=== PATIENT | female | born 1940 | race Hispanic/Latino ===

== ENCOUNTER 2023-10-09 09:03 | Observation (INO) | payer MEDICARE, SELFPAY ==
[2023-10-09] VITALS (14 sets, daily range): BP systolic 114–158; BP diastolic 33–45; PULSE 68–93; RESP 17–28; TEMP 36.3–38.4; O2SAT 90–100; BMI 35.1
--- NOTE | ~2023-10-09 | US_ITS ---
EXAMINATION: US venous doppler [facility] DATE: 10/10/2023 12:01 INDICATION: Shortness of breath. Elevated d-dimer. TECHNIQUE: Grayscale ultrasound images without and with compression and Doppler ultrasound images of the bilateral lower extremity veins were obtained. COMPARISON: None. FINDINGS: The visualized portions of right common femoral vein, profunda (deep) femoral vein, femoral vein, pop liteal vein, peroneal veins, posterior tibial veins, and greater saphenous vein outflow are patent. The visualized portions of left common femoral vein, profunda femoral vein, femoral vein, popliteal v ein, peroneal veins, posterior tibial veins, and greater saphenous vein outflow are patent. IMPRESSION: 1. No deep venous thrombosis. Reviewed, dictated and finalized at location E. IR SUPERVISOR
--- NOTE | ~2023-10-09 | XR_ITS ---
XR chest 1V portable DATE: 10/09/2023 10:02 INDICATION: Cough, wheezing TECHNIQUE: Portable upright AP chest on 10/09/2023 at 0955 hours COMPARISON: None FINDINGS: Cardiomegaly. Aortic valve replacement. Left-sided dual-lead pacemaker with leads overlying right atrium and right ventricle. Prominent aortic arch calcification, mild aortic tortuosity. There is patchy infiltrate in the mid and lower lung zones, right greater than left No pleural effusion or pneumothorax. Osteopenia. IMPRESSION: Patchy bilateral pulmonary infiltrates suggesting pneumonia. Pulmonary edema of the addit ional consideration Cardiomegaly Aortic valve replacement Aortic atherosclerosis Left dual-lead pacemaker Reviewed, dictated and finalized at location A. OS IMPRESSION: Patchy bilateral pulmonary infiltrates suggesting pneumonia. Pulmon milka edema of the additional consideration Cardiomegaly Aortic valve replacement Aortic atherosclerosis Left dual-lead pacemaker
--- NOTE | ~2023-10-09 | NM_ITS ---
NM lung vent and perfusion INDICATION: Elevated d-dimer. TECHNIQUE: The patient inhaled aerosolized 5 mCi xenon-133. Following ventilation scan, 10.2 mCi Tc 99m MAA was injected intravenously for perfusion images. Multiple images were then acquired. COMPARISON: Chest x-ray dated chest dated 08/09/2023 FINDINGS: The comparison chest radiograph demonstrates patchy bilateral airspace disease, compatible with pneumonia. The perfusion scan is normal. The aerosol in images demonstrate multiple small, mode rate-sized enlarged ventilation/perfusion mismatches, the largest of which in the right lower lung co rresponds to chest x-ray abnormality. IMPRESSION: 1: High probability for pulmonary embolism. Reviewed, dictated and finalized at location A. ATIONS ASST
--- NOTE | 2023-10-09 09:14 | ECG_ITS ---
Measurements Intervals [place] Rate: 87 P: MD: 0 QRS: -75 QRSD: 205 T: 100 QT: 452 QTc: 546 Interpretive Statements SINUS RHYTHM eLECTRONIC VENTRICULAR PACEMAKER ABNORMAL RHYTHM ECG NO PREVIOUS ECG AVAILABLE FOR COMPARISON Electronically Signed On 10-09-2023 13:53:16 ECONOMIC HISTORIAN by Ree Mendoza M.D.
[2023-10-09 09:31] LABS: Basophils Absolute Auto 0.1 K/mm3 (0.0-0.1); Basophils Percent Auto 0.3 % (0.2-1.2); Eosinophils Percent Auto 0.1 % (0-4.4); Hematocrit 39.8 % (37.0-47.0); Hemoglobin 12.6 g/dL (12.0-15.0); Immature Granulocyte Absolute 0.11 K/mm3 (0.00-0.031); Immature Granulocyte Percent A 0.6 % (0-0.5); Lymphocytes Absolute Auto 1.01 K/mm3 (0.9-3.2); Lymphocytes Percent Auto 5.8 % (18.3-44.2); Mean Corpuscular HGB Conc 31.7 g/dl (32-36); Mean Corpuscular Hemoglobin 28.5 pg (26-34); Mean Platelet Volume 11.1 fl (7.4-10.4); Monocytes Absolute Auto 1.7 K/mm3 (0.1-0.6); Monocytes Percent Auto 9.7 % (2.6-8.5); Neutrophils Absolute Auto 14.6 K/mm3 (1.3-6.7); Neutrophils Percent Auto 83.5 % (45.5-73.1); Platelet Count Result 155 k/mm3 (150-375); Red Blood Count 4.42 M/mm3 (4.2-5.4); Red Cell Distribution Width 13.6 % (11.5-14.5); White Blood Count 17.5 K/mm3 (4.5-10.0)
--- NOTE | 2023-10-09 09:39 | ED.URI ---
HPI - URI/Sore Throat General Chief Complaint: Upper Respiratory Infection Stated Complaint: sick since last noc Time Seen by Provider: 10/09/23 09:15 History of Present Illness HPI Narrative: 83-year-old female with history of hypertension, hyperlipidemia, breast cancer, s/p cholecystectomy, pacemaker placement reports for evaluation for fever, diarrhea and dyspnea. Patient states yesterday she developed a subjective fever. States this morning she woke up and felt feverish again, dyspneic and had 2 episodes of diarrhea which prompted her to come to the ED. patient is traveling from [facility] to visit family members. States her family has been sick this past weekend she has been exposed to the illness. She denies chest pain, cough, body aches, nasal congestion, sore throat or otalgia, abdominal pain, nausea or vomiting, dysuria or hematuria. Denies lower extremity edema. Related Data Home Medications Medication Instructions Recorded Confirmed aspirin 81 mg tablet 81 mg PO DAILY 10/09/23 10/09/23 furosemide 20 mg tablet 20 mg PO DAILY 10/09/23 10/09/23 losartan 100 mg tablet 100 mg PO DAILY 10/09/23 10/09/23 metoprolol succinate 25 mg 50 mg PO DAILY 10/09/23 10/09/23 tablet,extended release 24 hr potassium chloride 10 mEq 10 meq PO DAILY 10/09/23 10/09/23 tablet,extended release Allergies Allergy/AdvReac Type Severity Reaction Status Date / Time atorvastatin [From Lipitor] AdvReac Itching Verified 10/09/23 09:07 Review of Systems Review of Systems: CONSTITUTIONAL: See HPI EYES: Denies visual changes, redness, or discharge. ENT: See HPI CARDIOVASCULAR: Denies chest pain, palpitations, or edema. RESPIRATORY: See HPI GASTROINTESTINAL: Denies abdominal pain, nausea, vomiting, or diarrhea. GENITOURINARY: Denies dysuria or hematuria. SKIN: Denies rash or itching. MUSCULOSKELETAL: Denies back pain, joint pain, or myalgia. NEUROLOGIC: Denies headache, numbness, or weakness. PSYCHIATRIC: Denies anxiety or depression. [facility] Past Medical History Medical History (Updated 10/09/23 @ 14:33 by Santa Guevara PA-C) Hyperlipidemia Hypertension Surgical History Surgical History (Updated 10/09/23 @ 17:26 by Ree Mendoza MD) History of aortic valve replacement History of permanent cardiac pacemaker placement Social History Social History (Updated 10/09/23 @ 14:30 by Santa Guevara PA-C) Social History: Surrogate medical decision maker: Nati Garcia. Code status: Full code. Smoking status: Never smoker Substance use type: does not use Do You Feel Safe in your Home?: Yes Lack of Transportation: No Lack of Food: Never True Current Housing: I Have Housing Concerned About Future Housing: No Difficulty Paying Gas/Electric Bills: No Difficulty Paying for Meds: No Currently Unemployed: No Education: Trade/Vocational Certificate Difficulty w/ Childcare or Family Care: No Spiritual care concerns: No Exam Narrative: GENERAL: Well-appearing, well-nourished, and in no acute distress. HEAD: Normocephalic, atraumatic. EYES: PERRLA and EOMI. ENT: Nares clear, no rhinorrhea or epistaxis. Mucous membranes tacky. Posterior pharynx without erythema or edema. Uvula midline. No tonsillar hypertrophy. NECK: Supple. CHEST: Clear to auscultation. No respiratory distress. HEART: Regular rate and rhythm. No murmur heard. Normal peripheral pulses. ABDOMEN: Soft, nontender, nondistended, normal active bowel sounds. No rebound, guarding or rigidity. No CVA tenderness. EXTREMITIES: Normal range of motion. No edema. Negative Homans bilaterally. SKIN: Warm, dry, no rash. NEURO: No focal deficits. Alert and oriented x3 Course Course Emergency Course: The patient was started on 2L NC after having persistent oxygen saturations of 89% with a good pleth. She is satting 100% on 2L NC. Vital Signs Vital signs: Vital Signs Temperature 101.1 F H 10/09/23 09:02 Pulse Rat
[2023-10-09 09:40] LABS: Alanine Aminotransferase 17 U/L (6-35); Alkaline Phosphatase 124 U/L (38-126); Anion Gap 8 mmol/L (8-16); Aspartate Amino Transferase 32 U/L (14-36); Bilirubin,Total 1.2 mg/dL (0.2-1.3); Blood Urea Nitrogen 38 mg/dL (7-17); Calcium 9.2 mg/dL (8.4-10.2); Carbon Dioxide 24 mmol/L (22-30); Chloride 101 mmol/L (98-107); Estimated Glomerular Filt Rate 29; Glucose 113 mg/dL (65-110); Sodium 133 mmol/L (137-145)
[2023-10-09] MEDS: ACETAMINOPHEN 500 MG TABLET 1000 MG PO (09:46)
[2023-10-09] MEDS: SODIUM CHLORIDE 0.9% IV 1,000 ML 999 ML IV CONT (09:47)
--- NOTE | 2023-10-09 09:50 | PC.NURSE ---
Pt noted to be 89% on room air.
[2023-10-09 10:20] LABS: Influenza A QL RT-PCR Negative (Negative); Influenza B QL RT-PCR Negative (Negative); RSV RNA, RT-PCR Negative (Negative); SARS-CoV-2 RNA PCR Negative (Negative)
[2023-10-09 10:24] LABS: Magnesium 2.3 mg/dL (1.6-2.3)
[2023-10-09] MEDS: AZITHROMYCIN 500 MG/NS 250 ML 500 MG/250 ML BAG 250 MG IVPB (10:30)
[2023-10-09 10:35] LABS: NT Pro B Type Natriuretic Pept 15200 pg/mL (19.9-100)
[2023-10-09 10:40] LABS: Troponin I 0.082 ng/mL (0.000-0.034)
[2023-10-09 11:00] LABS: Appearance Urine Cloudy (Clear); Bacteria Urine None Seen /hpf; Bilirubin Urine Negative (Negative); Blood Urine Negative (Negative); Color Urine Yellow (Yellow); Glucose Urine UA Negative (Negative); Ketones Urine Trace mg/dL (Negative); Leukocyte Esterase Ur Negative LEU/UL (Negative); Need Manual Microscopic Reviewed; Nitrate Urine Negative (Negative); Protein Urine 3+ mg/dL (Negative); RBC Urine 0-2 /hpf (0-2); Specific Grav Ur 1.017 (1.001-1.035); Squamous Epithelial Cell Urine Occasional /hpf (Few); WBC Urine 0-5 /hpf
[2023-10-09 11:01] LABS: Add Urine Microscopic? YES
[2023-10-09 11:21] LABS: Alveolar/Arterial O2 Gradient 34.7 mmHg; Base Excess ABG -3.2 mEq/l (+/-2.0); Fractional Inspired Oxygen 28 %; HCO3 ABG 21.9 mEq/l (22.0-26.0); Oxygen Content ABG 16.7 %vol (16.0-22.0); Oxygen Saturation ABG 98.2 % (95.0-100.0); Oxyhemoglobin 96.8 % THb (90.0-100.0); PCO2 ABG 39.3 mmHg (35.0-45.0); PO2 ABG 118.6 mmHg (80.0-100.0); PO2 FiO2 Ratio Arterial Blood 4.24 %; Site Drawn RIGHT BRACHIAL; Total Hemoglobin 12.1 g/dL (12.0-18.0); pH ABG 7.363 (7.350-7.450)
[2023-10-09 11:22] LABS: Device NASAL CANNULA
--- NOTE | 2023-10-09 12:38 | ECG_ITS ---
Measurements Intervals [place] Rate: 76 P: 23 WA: 223 QRS: -77 QRSD: 193 T: 102 QT: 497 QTc: 560 Interpretive Statements SINUS RHYTHM WITH eLECTRONIC VENTRICULAR PACEMAKER ABNORMAL RHYTHM ECG COMPARED TO ECG 10/09/2023 09:20:23 NO SIGNIFICANT CHANGES Electronically Signed On 10-09-2023 13:56:49 GROUND SURVEILLANCE SYSTEMS OPERATOR by Ree Mendoza M.D.
[2023-10-09 13:01] LABS: Troponin I 0.103 ng/mL (0.000-0.034)
--- NOTE | 2023-10-09 13:11 | PC.NURSE ---
Pt taken for scan at this time
--- NOTE | 2023-10-09 13:44 | PC.NURSE ---
Pt returned to room 7 from scans.
--- NOTE | 2023-10-09 14:17 | ADMGEN ---
This patient, Emily Rm, was admitted to IMU Room 202-01. Patient/family oriented to hospital policies and general routines including ID bracelet, bed and alarms, visiting hours, pain management, procedures, bathroom and other care routines, personal items, smoking policy, room service/diet, and visiting hours. Information on how to activate the Rapid Response Team has been discussed. Patient/Family are encouraged to report perceived risks to care and to ask questions if they do not understand what they are told or what they should do.
--- NOTE | 2023-10-09 14:23 | PM.IMHP ---
H&P: HPI History of Present Illness Date/Time: 10/09/23 15:00 Chief Complaint: Shortness of breath. Narrative: This is a pleasant 83-year-old female with history of bioprosthetic aortic valve replacement, permanent pacemaker insertion, and hypertension who presented to the emergency department via EMS for evaluation of shortness of breath. The patient provides the following history. She is in town visiting family members for [place] and she felt fine the first few days. Yesterday she started to feel unwell with subjective fever, runny nose, cough rarely productive of clear phlegm, poor appetite, slight nausea, and loose stools. This morning she was feeling quite weak and came in for evaluation. She denies headache, neck ache, chest pain, pleuritic pain, palpitations, vomiting, and dysuria. In the ED: Temperature was 101.1? F on arrival. SpO2 has been in the upper 90s on 2 L nasal cannula. Pulse and blood pressure have been stable. Labs were significant for WBC count of 17.5, D-dimer 2.90, sodium 133, BUN 38, creatinine 1.70, troponin 0.082, and a proBNP 83175. She tested negative for influenza, RSV, and COVID. Chest x-ray showed patchy bilateral pulmonary infiltrates suggestive of pneumonia. V/Q scan showed high probability for pulmonary embolism. Intervention thus far include azithromycin 500 mg, ceftriaxone 1 g, and enoxaparin 77 mg. She is being admitted to the IMU in this setting for further treatment and evaluation. She denies personal and family history of venous thromboembolism. She has not had any recent long distance travel. She does admit to being somewhat sedentary. She has not noticed any swelling in her legs and denies calf pain. Review of Systems Review of Systems: Twelve systems were reviewed and are negative except for as per HPI. [facility] Past Medical History Medical History (Updated 10/09/23 @ 21:20 by Santa Guevara PA-C) Cancer of right breast Hyperlipidemia Hypertension Surgical History Surgical History (Updated 10/09/23 @ 21:18 by Santa Guevara PA-C) History of aortic valve replacement It sounds like she had a TAVR. History of cholecystectomy History of permanent cardiac pacemaker placement History of right mastectomy Family History Family History (Updated 10/09/23 @ 21:17 by Santa Guevara PA-C) Other Heart disease Hypertension Social History Social History Social History: Surrogate medical decision maker: Nati Garcia. Code status: Full code. Smoking status: Never smoker Substance use type: does not use Do You Feel Safe in your Home?: Yes Lack of Transportation: No Lack of Food: Never True Current Housing: I Have Housing Concerned About Future Housing: No Difficulty Paying Gas/Electric Bills: No Difficulty Paying for Meds: No Currently Unemployed: No Education: Trade/Vocational Certificate Difficulty w/ Childcare or Family Care: No Spiritual care concerns: No Meds Home Medications and Allergies Home Medications Medication Instructions Recorded Confirmed Type aspirin 81 mg tablet 81 mg PO DAILY 10/09/23 10/09/23 History furosemide 20 mg tablet 20 mg PO DAILY 10/09/23 10/09/23 History losartan 100 mg tablet 100 mg PO DAILY 10/09/23 10/09/23 History metoprolol succinate 25 mg 50 mg PO DAILY 10/09/23 10/09/23 History tablet,extended release 24 hr potassium chloride 10 mEq 10 meq PO DAILY 10/09/23 10/09/23 History tablet,extended release Allergies Allergy/AdvReac Type Severity Reaction Status Date / Time atorvastatin [From Lipitor] AdvReac Itching Verified 10/09/23 09:07 Vital Signs Vital Signs - 24 hr 10/09/23 09:02 10/09/23 09:49 10/09/23 10:31 Temperature 101.1 F H 100.2 F H Pulse Rate 93 77 Respiratory Rate 26 H 28 H Blood Pressure 147/45 H 114/40 L Pulse Oximetry 100 94 99 Oxygen Delivery Room Air Nasal Cannula Oxygen Flow Rate 2
--- NOTE | 2023-10-09 15:37 | PM.CNCAR ---
Assessment and Plan Assessment and plan (1) Elevated troponin: Code(s): R79.89 - Other specified abnormal findings of blood chemistry Status: Acute Assessment and Plan: Patient admitted with shortness of breath and fever, pneumonia and PEs. Has a mildly elevated troponin. No history of CAD. EKG is uninterpretable. Hhowever I think in view of the big picture, this troponin rise is likely due to her hypoxia and pulmonary emboli, and not due to ACS. Also has a significantly elevated proBNP but does not appear volume overloaded so will not treat for CHF. --check echo --otherwise no further cardiac evaluation (2) Pulmonary embolism: Code(s): I26.99 - Other pulmonary embolism without acute cor pulmonale Status: Acute Assessment and Plan: V/Q scan showed multiple defects, hike probability of PE. No edema but did have a car ride recently. --agree with Lovenox (3) Pneumonia: Qualifiers: Laterality: bilateral Lung location: unspecified part of lung Pneumonia type: due to unspecified organism Qualified Code(s): J18.9 - Pneumonia, unspecified organism Code(s): J18.9 - Pneumonia, unspecified organism Status: Acute Assessment and Plan: Fever, elevated white count infiltrates consistent with pneumonia. Started on antibiotics. Treatment per hospitalist. (4) History of aortic valve replacement: Code(s): Z95.2 - Presence of prosthetic heart valve Status: Acute Assessment and Plan: History of TAVR valve around 2019, followed by [facility]. No evidence of of significant bioprosthetic valve disease. Follow-up with usual groundwater monitoring technician on discharge. (5) History of permanent cardiac pacemaker placement: Code(s): Z95.0 - Presence of cardiac pacemaker Status: Acute Assessment and Plan: History of pacemaker, atrial sensing ventricular pacing appropraitely, follow-up with usual groundwater monitoring technician on discharge. Plan Will sign off. Please call up with the be of further assistance. History of Present Illness History of Present Illness Consult date/time: 10/09/23 15:37 Reason For Visit: Pneumonia Narrative: Tracy noble is an 83-year-old female whom I was asked to see at the request of CHAI Colindres for my advice and opinion regarding her elevated troponin proBNP in consultation. She has history of hypertension, hyperlipidemia, TAVR, pacemaker. The patient lives in [place] and drove here on to visit family. This morning she awoke feeling feverish, short of breath and had 2 episodes of diarrhea. She was too weak to stand and her daughter helped set her on the floor. Mild nonproductive cough, but no chest pain or pressure. Some family members had been sick recently as well. She was brought to the emergency room. Her temperature was a 101.4? on admission and she was mildly hypoxic. Her white count was 17 K. She is being admitted for pneumonia. In addition her D-dimer was elevated, and V/Q scan showed high probability for PE and she has been started on Lovenox. Troponin 0.02, 0.10 ProBNP 59930 Negative for flu, COVID, RSV EKG on 10/09/2023 at 9:20 a.m. shows a since and ventricularly pacing: Second EKG same day shows similar findings Both personally reviewed Chest x-ray: Patchy bilateral pulmonary infiltrates suggesting pneumonia. Pulmonary edema of the additional consideration Cardiomegaly Aortic valve replacement Aortic atherosclerosis Left dual-lead pacemaker Personally reviewed, agree. V/Q scan: High probability for pulmonary embolism Review of Systems Constitutional: Constitutional: Reports fatigue, Reports fever(s), Reports lethargy and Reports weakness Eyes: Eyes: Reports no additional eye complaints ENT: Denies epistaxis Cardiovascular: Cardiovascular: Denies chest pain, Denies pedal edema, Denies lightheadedness and Reports dyspnea Respiratory: Respiratory: Denies chest congestion, Reports co
[2023-10-09 17:47] LABS: Troponin I 0.086 ng/mL (0.000-0.034)
[2023-10-09] MEDS: ENOXAPARIN 80 MG/0.8 ML SYRINGE SUB-Q (20:52)
[2023-10-10] VITALS (14 sets, daily range): BP systolic 128–155; BP diastolic 33–77; PULSE 70–87; RESP 18–20; TEMP 36.1–36.7; O2SAT 92–100
[2023-10-10 05:35] LABS: Hematocrit 33.7 % (37.0-47.0); Hemoglobin 10.6 g/dL (12.0-15.0); Immature Platelet Fraction Pct 5.7 % (0.9-11.2); Mean Corpuscular HGB Conc 31.5 g/dl (32-36); Mean Corpuscular Hemoglobin 28.6 pg (26-34); Mean Corpuscular Volume 91.1 fl (80-100); Mean Platelet Volume 10.9 fl (7.4-10.4); Platelet Count Result 139 k/mm3 (150-375); Red Cell Distribution Width 13.8 % (11.5-14.5)
[2023-10-10 05:45] LABS: Anion Gap 7 mmol/L (8-16); Blood Urea Nitrogen 37 mg/dL (7-17); Calcium 8.2 mg/dL (8.4-10.2); Carbon Dioxide 22 mmol/L (22-30); Chloride 105 mmol/L (98-107); Estimated Glomerular Filt Rate 33; Glucose 91 mg/dL (65-110); Magnesium 2.4 mg/dL (1.6-2.3); Potassium 4.8 mmol/L (3.4-5.0); Sodium 134 mmol/L (137-145)
[2023-10-10] MEDS: PERFLUTREN LIPID MICROSPHERES 1.5 ML VIAL DILUTED TO 10 ML TOTAL VOLUME IV PUSH (08:45)
[2023-10-10] MEDS: ASPIRIN 81 MG ENTERIC TABLET PO (09:29)
[2023-10-10] MEDS: ENOXAPARIN 80 MG/0.8 ML SYRINGE SUB-Q ×2 (09:29→20:19)
[2023-10-10] MEDS: LOSARTAN POTASSIUM 100 MG TABLET PO (09:29)
[2023-10-10] MEDS: POTASSIUM CHLORIDE 10 MEQ ER TABLET PO (09:29)
[2023-10-10] MEDS: AZITHROMYCIN 500 MG/NS 250 ML 500 MG/250 ML BAG 250 MG IVPB (09:30)
[2023-10-10] MEDS: METOPROLOL SUCCINATE EXT REL 50 MG TABCR PO (09:30)
--- NOTE | 2023-10-10 13:15 | PM.IMPN ---
Progress Note: A&P Assessment and Plan (1) Pulmonary embolism: Code(s): I26.99 - Other pulmonary embolism without acute cor pulmonale Status: Acute Assessment and Plan: V/Q scan shows high probability for pulmonary embolism. Continue enoxaparin 1 milligram/kilogram b.i.d. will start Eliquis with tomorrow. Echocardiogram and venous Doppler ultrasounds of the lower extremities order for further evaluation. (2) Pneumonia: Qualifiers: Laterality: bilateral Lung location: unspecified part of lung Pneumonia type: due to unspecified organism Qualified Code(s): J18.9 - Pneumonia, unspecified organism Code(s): J18.9 - Pneumonia, unspecified organism Status: Acute Assessment and Plan: Clinically the patient has pneumonia and pulmonary infiltrates are noted on x-ray. Continue azithromycin 500 mg daily and ceftriaxone 1 g daily. Attempt sputum for culture. Check Legionella and pneumococcal antigens. (3) Elevated troponin: Code(s): R79.89 - Other specified abnormal findings of blood chemistry Status: Acute Assessment and Plan: Cardiology consult noted. No new intervention suggested. troponin is a bit elevated but has remained flat and is likely related to pulmonary embolism. Echocardiogram has been ordered for further evaluation. (4) Hypertension: Code(s): I10 - Essential (primary) hypertension Status: Acute Assessment and Plan: Stable on current medications. Will continue current treatment. (5) Renal failure: Code(s): N19 - Unspecified kidney failure Status: Acute Assessment and Plan: Stable on current medications. Will continue current treat Check BMP tomorrow Plan Plan is to start Eliquis tomorrow otherwise continue current treatment monitor closely. Subjective Date/time seen: 10/10/23 13:15 Interval history: Patient was seen during the morning rounds today. Mild shortness of breath. No chest pain. No abdominal pain, nausea, no vomiting. Mood stable. Review of Systems Review of Systems: Twelve systems were reviewed and are negative except for as per HPI. Exam Narrative: General: Well-developed, nontoxic-appearing female sitting up in bed. Weight: 78.8 kg. BMI: 35.1. HEENT: Slightly hard of hearing. PERRL, EOMI. Sclera anicteric. Oral mucosa moist. Neck: Supple. No JVD. Respiratory: Respirations are nonlabored. Coarse lung sounds heard in the right mid to lower lobe. Cardiovascular: Regular rate and rhythm with S1-S2. Systolic murmur heard at the upper sternal border. Gastrointestinal: Abdomen is soft, nontender, and nondistended with positive bowel sounds. No organomegaly. Skin: Warm and dry. No rash or lesions on limited exam. Extremities: No cyanosis, clubbing, or significant edema. Radial and pedal pulses intact. No palpable knots or cords. Neurological: Alert. Cranial nerves 2-12 are grossly intact. No gross focal deficits to casual conversation. Psychiatric: Pleasant and cooperative with appropriate mood and affect. Objective Data Vital Signs Vital Signs: Vital Signs - 24 hr 10/09/23 14:21 10/09/23 16:00 10/09/23 16:00 Temperature 36.8 C Pulse Rate 68 68 72 Respiratory Rate 20 20 Blood Pressure 117/34 L Pulse Oximetry 98 98 Oxygen Delivery Room Air 10/09/23 18:00 10/09/23 20:00 10/09/23 20:00 Temperature 36.3 C L Pulse Rate 75 75 75 Respiratory Rate 20 20 Blood Pressure 128/35 L Pulse Oximetry 99 99 Oxygen Delivery Room Air 10/09/23 20:00 10/09/23 22:00 10/10/23 00:00 Temperature 36.6 C Pulse Rate 76 77 79 Respiratory Rate 20 Blood Pressure 128/36 L Pulse Oximetry 100 Oxygen Delivery 10/10/23 00:00 10/10/23 00:00 10/10/23 03:41 Temperature 36.3 C L Pulse Rate 79 80 83 Respiratory Rate 20 20 Blood Pressure 144/33 H Pulse Oximetry 100 93 Oxygen Delivery Room Air 10/10/23 02:00 10/10/23 04:00 10/10
--- NOTE | 2023-10-10 14:29 | ECHO_ITS ---
Patient Info Name: Emily Rm Age: 83 years : 1940 Gender: Female Ht: 59 in Wt: 173 lbs BSA: 1.85 m2 HR: 78 bpm BP: 144 / 33 mmHg Technical Quality: Fair Exam Date: 10/10/2023 8:26 AM Exam Location: Echo Lab Patient Status: Outpatient Admit Date: 10/09/2023 Staff Ordering Physician: Santa Guevara PA-C Attending Provider: Anthony Corona MD Referring Physician: Ismael TEMPLETON; Exam Type: CA echo dop color flow w con Study Info Indications - poss pulmonary emboli - elevated BNP - elevated trop Complete two-dimensional, color flow and Doppler transthoracic echocardiogram is performed with contrast to opacify the left ventricle and to improve the deliniation of the left ventricle endocardial borders. Contrast/Agitated Saline Contrast/Ag. Saline: Definity Amount: 1.00 ml Existing IV Access: Yes IV Access Condition: patent with no signs of infiltration Summary 1. Left ventricular chamber dimension is normal. 2. Left ventricular systolic function is normal, estimated at 65-70%. 3. There is severely increased left ventricular wall thickness. 4. The left ventricular diastolic function is grade I diastolic dysfunction. 5. Right ventricular systolic function is normal. 6. Left atrial chamber dimension is severely enlarged. 7. Bioprosthetic valve appears well seated, however, valve leaflets are not well visualized. Concern for significant bioprosthetic valve stenosis due to mean gradient of 39mmHg and peak velocity of 406 cm/s. 8. There is moderate aortic valve regurgitation. 9. There is mild mitral valve regurgitation. 10. There is mild tricuspid valve regurgitation. Left Ventricle Left ventricular chamber dimension is normal. Left ventricular systolic function is normal, estimated at 65-70%. There is severely increased left ventricular wall thickness. The left ventricular diastolic function is grade I diastolic dysfunction. Right Ventricle Right ventricular chamber dimension is normal. Right ventricular systolic function is normal. Left Atria Left atrial chamber dimension is severely enlarged. Right Atria Right atrial chamber dimension is normal. Atrial Septum Intact interatrial septum visualized by color flow imaging. Aortic Valve Bioprosthetic valve appears well seated, however, valve leaflets are not well visualized. Concern for significant bioprosthetic valve stenosis due to mean gradient of 39mmHg and peak velocity of 406 cm/s. There is moderate aortic valve regurgitation. Pulmonic Valve The pulmonic valve is not well visualized. There is trace pulmonic regurgitation. Mitral Valve The mitral valve has thickened leaflets. There is mild mitral valve regurgitation. The mitral valve annulus is severely calcified. Tricuspid Valve There is mild tricuspid valve regurgitation. Pericardium/Pleural There is no pericardial effusion. Inferior Vena Cava Normal inferior vena cava with >50% collapse upon inspiration consistent with normal right atrial pressure, 3 mmHg. Aorta The aortic root size at the sinus of Valsalva is normal. Left Ventricular Outflow Tract Name Value Normal LVOT 2D LVOT Diameter 1.95 cm Pulmonic Valve Name
--- NOTE | 2023-10-10 15:23 | PC.NURSE ---
This patient, Emily Rm, was received from [facility] on 10/10/23 at 1523. Patient/family oriented to unit policies and routines
--- NOTE | 2023-10-10 15:43 | PC.NURSE ---
This patient, Emily Rm, was transferred to [facility] on 10/10/23 at 1520. Personal belongings sent with patient. Report given to Amy. Appropriate documentation sent with patient.
--- NOTE | 2023-10-10 19:46 | PC.NURSE ---
Amy Hu LPN provided care for this patient on 10/10/23. I have reviewed her charting and agree with her assessments.
[2023-10-11] VITALS (10 sets, daily range): BP systolic 155–188; BP diastolic 34–62; PULSE 67–80; RESP 20–24; TEMP 36.4–36.9; O2SAT 90–94
[2023-10-11 06:50] LABS: Alanine Aminotransferase 13 U/L (6-35); Albumin Level 3.3 g/dL (3.5-5.1); Alkaline Phosphatase 105 U/L (38-126); Anion Gap 7 mmol/L (8-16); Aspartate Amino Transferase 24 U/L (14-36); Bilirubin,Total 0.4 mg/dL (0.2-1.3); Blood Urea Nitrogen 33 mg/dL (7-17); Calcium 8.4 mg/dL (8.4-10.2); Carbon Dioxide 22 mmol/L (22-30); Chloride 107 mmol/L (98-107); Estimated Glomerular Filt Rate 36; Glucose 99 mg/dL (65-110); Potassium 4.6 mmol/L (3.4-5.0); Sodium 136 mmol/L (137-145)
[2023-10-11] MEDS: METOPROLOL SUCCINATE EXT REL 50 MG TABCR PO (08:50)
[2023-10-11] MEDS: APIXABAN 5 MG TABLET 10 MG PO ×2 (08:50→20:04)
[2023-10-11] MEDS: POTASSIUM CHLORIDE 10 MEQ ER TABLET PO (08:50)
[2023-10-11] MEDS: ASPIRIN 81 MG ENTERIC TABLET PO (08:51)
[2023-10-11] MEDS: LOSARTAN POTASSIUM 100 MG TABLET PO (08:51)
[2023-10-11] MEDS: AZITHROMYCIN 500 MG/NS 250 ML 500 MG/250 ML BAG 250 MG IVPB (09:39)
--- NOTE | 2023-10-11 11:19 | PM.IMPN ---
Progress Note: A&P Assessment and Plan (1) Pulmonary embolism: Code(s): I26.99 - Other pulmonary embolism without acute cor pulmonale Status: Acute Assessment and Plan: V/Q scan shows high probability for pulmonary embolism. Continue enoxaparin 1 milligram/kilogram b.i.d. will start Eliquis with tomorrow. Venous doppler lower extremities negative (2) Pneumonia: Qualifiers: Laterality: bilateral Lung location: unspecified part of lung Pneumonia type: due to unspecified organism Qualified Code(s): J18.9 - Pneumonia, unspecified organism Code(s): J18.9 - Pneumonia, unspecified organism Status: Acute Assessment and Plan: Clinically the patient has pneumonia and pulmonary infiltrates are noted on x-ray. Continue azithromycin 500 mg daily and ceftriaxone 1 g daily. Improving (3) Elevated troponin: Code(s): R79.89 - Other specified abnormal findings of blood chemistry Status: Acute Assessment and Plan: Cardiology consult noted. No new intervention suggested. troponin is a bit elevated but has remained flat and is likely related to pulmonary embolism. (4) Hypertension: Code(s): I10 - Essential (primary) hypertension Status: Acute Assessment and Plan: Stable on current medications. Will continue current treatment. (5) Renal failure: Code(s): N19 - Unspecified kidney failure Status: Acute Assessment and Plan: Stable on current medications. Will continue current treat Check BMP tomorrow Plan Plan is to start Eliquis tomorrow otherwise continue current treatment monitor closely. Subjective Date/time seen: 10/11/23 11:19 Interval history: Patient was seen during the morning rounds today. No new overnight complaints. Mild shortness of breath. No chest pain. No abdominal pain, nausea, no vomiting. Mood stable. Review of Systems Review of Systems: Twelve systems were reviewed and are negative except for as per HPI. Exam Narrative: General: Well-developed, nontoxic-appearing female sitting up in bed. Weight: 78.8 kg. BMI: 35.1. HEENT: Slightly hard of hearing. PERRL, EOMI. Sclera anicteric. Oral mucosa moist. Neck: Supple. No JVD. Respiratory: Respirations are nonlabored. Coarse lung sounds heard in the right mid to lower lobe. Cardiovascular: Regular rate and rhythm with S1-S2. Systolic murmur heard at the upper sternal border. Gastrointestinal: Abdomen is soft, nontender, and nondistended with positive bowel sounds. No organomegaly. Skin: Warm and dry. No rash or lesions on limited exam. Extremities: No cyanosis, clubbing, or significant edema. Radial and pedal pulses intact. No palpable knots or cords. Neurological: Alert. Cranial nerves 2-12 are grossly intact. No gross focal deficits to casual conversation. Psychiatric: Pleasant and cooperative with appropriate mood and affect. Objective Data Vital Signs Vital Signs: Vital Signs - 24 hr 10/10/23 12:00 10/10/23 12:00 10/10/23 14:00 Temperature 36.6 C Pulse Rate 87 71 72 Respiratory Rate 18 Blood Pressure 143/77 H Pulse Oximetry 97 Oxygen Delivery 10/10/23 15:54 10/10/23 16:00 10/10/23 15:23 Temperature 36.5 C Pulse Rate 73 80 Respiratory Rate 18 Blood Pressure 147/38 H Pulse Oximetry 95 Oxygen Delivery Room Air 10/10/23 21:25 10/10/23 20:00 10/11/23 02:30 Temperature 36.1 C L 36.8 C Pulse Rate 73 75 75 Respiratory Rate 18 24 H Blood Pressure 155/43 H 170/34 H Pulse Oximetry 92 90 Oxygen Delivery 10/11/23 00:00 10/11/23 04:00 10/11/23 05:15 Temperature 36.4 C L Pulse Rate 77 67 75 Respiratory Rate 20 Blood Pressure 168/37 H Pulse Oximetry 90 Oxygen Delivery 10/11/23 08:50 Temperature Pulse Rate 73 Respiratory Rate Blood Pressure Pulse Oximetry Oxygen Delivery Intake/Output Intake/Output: Intake & Output 10/08/23 10/09/23 12
[2023-10-11 18:52] LABS: Basophils Absolute Auto 0.1 K/mm3 (0.0-0.1); Basophils Percent Auto 0.8 % (0.2-1.2); Eosinophils Absolute Auto 0.3 K/mm3 (0-0.3); Eosinophils Percent Auto 3.9 % (0-4.4); Hematocrit 37.9 % (37.0-47.0); Hemoglobin 11.6 g/dL (12.0-15.0); Immature Granulocyte Absolute 0.03 K/mm3 (0.00-0.031); Immature Granulocyte Percent A 0.4 % (0-0.5); Lymphocytes Absolute Auto 1.21 K/mm3 (0.9-3.2); Lymphocytes Percent Auto 15.3 % (18.3-44.2); Mean Corpuscular HGB Conc 30.6 g/dl (32-36); Mean Corpuscular Hemoglobin 28.4 pg (26-34); Mean Corpuscular Volume 92.9 fl (80-100); Mean Platelet Volume 11.2 fl (7.4-10.4); Monocytes Absolute Auto 0.6 K/mm3 (0.1-0.6); Monocytes Percent Auto 7.8 % (2.6-8.5); Neutrophils Absolute Auto 5.7 K/mm3 (1.3-6.7); Neutrophils Percent Auto 71.8 % (45.5-73.1); Platelet Count Result 177 k/mm3 (150-375); Red Blood Count 4.08 M/mm3 (4.2-5.4); Red Cell Distribution Width 13.9 % (11.5-14.5); White Blood Count 7.9 K/mm3 (4.5-10.0)
[2023-10-11] MEDS: ACETAMINOPHEN 325 MG TABLET 650 MG PO (23:36)
[2023-10-12] VITALS (11 sets, daily range): BP systolic 107–187; BP diastolic 33–78; PULSE 66–83; RESP 13–20; TEMP 35.8–36.8; O2SAT 86–98
[2023-10-12 07:00] LABS: Basophils Absolute Auto 0.1 K/mm3 (0.0-0.1); Basophils Percent Auto 0.8 % (0.2-1.2); Eosinophils Absolute Auto 0.4 K/mm3 (0-0.3); Eosinophils Percent Auto 4.8 % (0-4.4); Hematocrit 36.1 % (37.0-47.0); Hemoglobin 11.1 g/dL (12.0-15.0); Immature Granulocyte Absolute 0.03 K/mm3 (0.00-0.031); Immature Granulocyte Percent A 0.4 % (0-0.5); Lymphocytes Absolute Auto 1.03 K/mm3 (0.9-3.2); Lymphocytes Percent Auto 14.2 % (18.3-44.2); Mean Corpuscular HGB Conc 30.7 g/dl (32-36); Mean Corpuscular Hemoglobin 28.5 pg (26-34); Mean Corpuscular Volume 92.6 fl (80-100); Monocytes Absolute Auto 0.7 K/mm3 (0.1-0.6); Neutrophils Absolute Auto 5.1 K/mm3 (1.3-6.7); Neutrophils Percent Auto 70.8 % (45.5-73.1); Platelet Count Result 192 k/mm3 (150-375); Red Cell Distribution Width 13.9 % (11.5-14.5); White Blood Count 7.3 K/mm3 (4.5-10.0)
[2023-10-12 07:18] LABS: Alanine Aminotransferase 13 U/L (6-35); Albumin Level 3.4 g/dL (3.5-5.1); Alkaline Phosphatase 111 U/L (38-126); Anion Gap 5 mmol/L (8-16); Aspartate Amino Transferase 27 U/L (14-36); Bilirubin,Total 0.5 mg/dL (0.2-1.3); Blood Urea Nitrogen 28 mg/dL (7-17); Calcium 8.7 mg/dL (8.4-10.2); Carbon Dioxide 25 mmol/L (22-30); Chloride 108 mmol/L (98-107); Estimated Glomerular Filt Rate 39; Glucose 101 mg/dL (65-110); Sodium 138 mmol/L (137-145)
[2023-10-12] MEDS: ASPIRIN 81 MG ENTERIC TABLET PO (10:08)
[2023-10-12] MEDS: POTASSIUM CHLORIDE 10 MEQ ER TABLET PO (10:08)
[2023-10-12] MEDS: METOPROLOL SUCCINATE EXT REL 50 MG TABCR PO (10:08)
[2023-10-12] MEDS: LOSARTAN POTASSIUM 100 MG TABLET PO (10:08)
[2023-10-12] MEDS: APIXABAN 5 MG TABLET 10 MG PO ×2 (10:08→20:22)
[2023-10-12] MEDS: AZITHROMYCIN 500 MG/NS 250 ML 500 MG/250 ML BAG 250 MG IVPB (10:09)
--- NOTE | 2023-10-12 11:03 | PM.IMPN ---
Progress Note: A&P Assessment and Plan (1) Pulmonary embolism: Code(s): I26.99 - Other pulmonary embolism without acute cor pulmonale Status: Acute Assessment and Plan: V/Q scan shows high probability for pulmonary embolism. On Eliquis Venous doppler lower extremities negative Stable on current medications. Will continue current treatment. (2) Pneumonia: Qualifiers: Laterality: bilateral Lung location: unspecified part of lung Pneumonia type: due to unspecified organism Qualified Code(s): J18.9 - Pneumonia, unspecified organism Code(s): J18.9 - Pneumonia, unspecified organism Status: Acute Assessment and Plan: Clinically the patient has pneumonia and pulmonary infiltrates are noted on x-ray. Continue azithromycin 500 mg daily and ceftriaxone 1 g daily. Improving (3) Elevated troponin: Code(s): R79.89 - Other specified abnormal findings of blood chemistry Status: Acute Assessment and Plan: Cardiology consult noted. No new intervention suggested. Stable on current medications. Will continue current treatment. (4) Hypertension: Code(s): I10 - Essential (primary) hypertension Status: Acute Assessment and Plan: Stable on current medications. Will continue current treatment. (5) Renal failure: Code(s): N19 - Unspecified kidney failure Status: Acute Assessment and Plan: Stable on current medications. Will continue current treat Plan Plan is to continue on Eliquis, stays stable will discharge home in the morning Subjective Date/time seen: 10/12/23 11:03 Interval history: Patient was seen during the morning rounds today. No new overnight complaints. Breathing is slightly better. No chest pain. No abdominal pain, nausea, no vomiting. Mood stable. Review of Systems Review of Systems: Twelve systems were reviewed and are negative except for as per HPI. Exam Narrative: General: Well-developed, nontoxic-appearing female sitting up in bed. Weight: 78.8 kg. BMI: 35.1. HEENT: Slightly hard of hearing. PERRL, EOMI. Sclera anicteric. Oral mucosa moist. Neck: Supple. No JVD. Respiratory: Respirations are nonlabored. Coarse lung sounds heard in the right mid to lower lobe. Cardiovascular: Regular rate and rhythm with S1-S2. Systolic murmur heard at the upper sternal border. Gastrointestinal: Abdomen is soft, nontender, and nondistended with positive bowel sounds. No organomegaly. Skin: Warm and dry. No rash or lesions on limited exam. Extremities: No cyanosis, clubbing, or significant edema. Radial and pedal pulses intact. No palpable knots or cords. Neurological: Alert. Cranial nerves 2-12 are grossly intact. No gross focal deficits to casual conversation. Psychiatric: Pleasant and cooperative with appropriate mood and affect. Objective Data Vital Signs Vital Signs: Vital Signs - 24 hr 10/11/23 12:00 10/11/23 12:00 10/11/23 16:00 Temperature 36.7 C 36.6 C Pulse Rate 71 67 70 Respiratory Rate 20 20 Blood Pressure 160/51 H Pulse Oximetry 94 93 Oxygen Delivery Oxygen Flow Rate 10/11/23 16:31 10/11/23 20:00 10/11/23 20:00 Temperature 36.9 C Pulse Rate 80 Respiratory Rate 20 Blood Pressure 155/62 H 188/61 H Pulse Oximetry 91 Oxygen Delivery Room Air Oxygen Flow Rate 10/12/23 00:00 10/12/23 06:34 10/12/23 06:30 Temperature 36.8 C Pulse Rate 69 Respiratory Rate 20 Blood Pressure 153/33 H Pulse Oximetry 97 96 86 L Oxygen Delivery Nasal Cannula Room Air Oxygen Flow Rate 1 10/12/23 05:25 10/12/23 08:00 10/12/23 09:12 Temperature 36.6 C 35.8 C L Pulse Rate 66 74 Respiratory Rate 18 16 Blood Pressure 155/38 H 157/40 H Pulse Oximetry 98 92 95 Oxygen Delivery Nasal Cannula Oxygen Flow Rate 1 10/12/23 08:00 Temperature Pulse Rate 74 Respiratory Rate 16 Blood Pressure Pulse Oximetry 95 Oxygen Delivery N
[2023-10-12 13:37] LABS: Mycoplasma IgM Antibody Titer 120 U/mL (<770)
[2023-10-13] VITALS (11 sets, daily range): BP systolic 154–180; BP diastolic 35–59; PULSE 67–85; RESP 12–18; TEMP 35.9–36.3; O2SAT 85–100
[2023-10-13 00:45] LABS: Legionella pneumophila Ag Ur Not Detected (Not Detected)
[2023-10-13 05:13] LABS: Pneumococcal Antigen Urine Not Detected (Not Detected)
[2023-10-13] MEDS: POTASSIUM CHLORIDE 10 MEQ ER TABLET PO (08:25)
[2023-10-13] MEDS: AZITHROMYCIN 500 MG/NS 250 ML 500 MG/250 ML BAG 250 MG IVPB (08:25)
[2023-10-13] MEDS: FUROSEMIDE 20 MG TABLET PO (08:25)
[2023-10-13] MEDS: ASPIRIN 81 MG ENTERIC TABLET PO (08:25)
[2023-10-13] MEDS: LOSARTAN POTASSIUM 100 MG TABLET PO (08:25)
[2023-10-13] MEDS: APIXABAN 5 MG TABLET 10 MG PO (08:25)
[2023-10-13] MEDS: METOPROLOL SUCCINATE EXT REL 50 MG TABCR PO (08:25)
--- NOTE | 2023-10-13 09:00 | PM.IMPN ---
Progress Note: A&P Assessment and Plan (1) Pulmonary embolism: Code(s): I26.99 - Other pulmonary embolism without acute cor pulmonale Status: Acute Assessment and Plan: 10/12/23: V/Q scan shows high probability for pulmonary embolism. On Eliquis Venous doppler lower extremities negative Stable on current medications. Will continue current treatment. 10/13/23: (2) Pneumonia: Qualifiers: Laterality: bilateral Lung location: unspecified part of lung Pneumonia type: due to unspecified organism Qualified Code(s): J18.9 - Pneumonia, unspecified organism Code(s): J18.9 - Pneumonia, unspecified organism Status: Acute Assessment and Plan: 10/12/23: Clinically the patient has pneumonia and pulmonary infiltrates are noted on x-ray. Continue azithromycin 500 mg daily and ceftriaxone 1 g daily. Improving 10/13/23: (3) Elevated troponin: Code(s): R79.89 - Other specified abnormal findings of blood chemistry Status: Acute Assessment and Plan: 10/12/23: Cardiology consult noted. No new intervention suggested. Stable on current medications. Will continue current treatment. 10/13/23: (4) Hypertension: Code(s): I10 - Essential (primary) hypertension Status: Acute Assessment and Plan: 10/12/23: Stable on current medications. Will continue current treatment. 10/13/23: (5) Renal failure: Code(s): N19 - Unspecified kidney failure Status: Acute Assessment and Plan: 10/12/23: Stable on current medications. Will continue current treat 10/13/23: Plan Plan is to continue on Eliquis, stays stable will discharge home in the morning Time Spent With Patient Time with patient: Greater than 35 minutes Subjective Date/time seen: 10/13/23 09:00 Interval history: This is an 83 year old female who presented to the hospital on 10/09/23 with complaints of [id number] , cough, congestion, poor appetite, nausea, loose stools and shortness of breath. Work up in the hospital included a chest x-ray which shown pneumonia, VQ scan which revealed a PE, venous doppler study which was negative for DVT. Labs revealed WBC 17.5, D-dimer 2.90, Na+ 133, BUN 38, Creatinine 1.70, eGFR 29. Troponin 0.082<0.103>0.086. UA shown 3+ protein, trace ketones. respiratory panel was negative for COVID, flu, and RSV. Urine strep and urine legionella was negative. Mycoplasma was insignificant. She had an echo done which shown normal LV systolic function with an EF of 65-70%, grade 1 diastolic dysfunction. EKG shown NSR with a rate of 81, prolongation of QTc. Patient was started on Azithromycin and Rocephin. She was also started on Eliquis for the PE. On examination today patientLabs today reveal WBC 7.3, RBC 3.90, Hgb 11.1, Hct 36.1, Chloride 108, BUN 28, Creatinine 1.30, liver enzymes are normal, blood sugars ranging 91-101. Review of Systems Review of Systems: All systems reviewed & are unremarkable except as noted in HPI and below Constitutional: Constitutional: Reports as per HPI and Reports no additional constitutional complaints Eyes: Eyes: Reports as per HPI and Reports no additional eye complaints ENT: Reports system reviewed and no additional complaints, except as documented and Reports as per HPI Cardiovascular: Cardiovascular: Reports as per HPI and Reports no additional cardiovascular complaints Respiratory: Respiratory: Reports as per HPI and Reports no additional respiratory complaints Gastrointestinal: Gastrointestinal: Reports as per HPI and Reports no additional gastrointestinal complaints Genitourinary: Genitourinary: Reports no additional female genitourinary complaints and Reports as per HPI Musculoskeletal: Musculoskeletal: Reports no additional musculoskeletal complaints and Reports as per HPI Integumentary/Breasts: Skin/Breast: Reports system reviewed and no additional complaints, ex
[2023-10-13 10:47] LABS: Basophils Percent Auto 0.6 % (0.2-1.2); Eosinophils Absolute Auto 0.3 K/mm3 (0-0.3); Hematocrit 35.9 % (37.0-47.0); Hemoglobin 11.1 g/dL (12.0-15.0); Immature Granulocyte Absolute 0.03 K/mm3 (0.00-0.031); Immature Granulocyte Percent A 0.4 % (0-0.5); Lymphocytes Absolute Auto 1.13 K/mm3 (0.9-3.2); Lymphocytes Percent Auto 16.9 % (18.3-44.2); Mean Corpuscular HGB Conc 30.9 g/dl (32-36); Mean Corpuscular Hemoglobin 28.5 pg (26-34); Mean Corpuscular Volume 92.1 fl (80-100); Mean Platelet Volume 10.3 fl (7.4-10.4); Monocytes Absolute Auto 0.7 K/mm3 (0.1-0.6); Monocytes Percent Auto 10.6 % (2.6-8.5); Neutrophils Absolute Auto 4.5 K/mm3 (1.3-6.7); Neutrophils Percent Auto 67.5 % (45.5-73.1); Platelet Count Result 193 k/mm3 (150-375); Red Cell Distribution Width 13.9 % (11.5-14.5); White Blood Count 6.7 K/mm3 (4.5-10.0)
[2023-10-13 10:56] LABS: Alanine Aminotransferase 20 U/L (6-35); Albumin Level 3.8 g/dL (3.5-5.1); Alkaline Phosphatase 113 U/L (38-126); Anion Gap 3 mmol/L (8-16); Aspartate Amino Transferase 40 U/L (14-36); Bilirubin,Total 0.5 mg/dL (0.2-1.3); Blood Urea Nitrogen 24 mg/dL (7-17); Calcium 8.7 mg/dL (8.4-10.2); Carbon Dioxide 28 mmol/L (22-30); Chloride 106 mmol/L (98-107); Estimated Glomerular Filt Rate 47; Glucose 105 mg/dL (65-110); Potassium 5.4 mmol/L (3.4-5.0); Sodium 137 mmol/L (137-145)
--- NOTE | 2023-10-13 13:52 | HOMEO2EVAL ---
Evaluation was performed at [facility] Home Oxygen Evaluation RC: Home Oxygen (O2) Evaluation Start: 10/13/23 12:09 Freq: ONCE Status: Active Protocol: RPE Activity Type Activity Date Activity User E-sign Co-sign Detail Recorded Client Recorded Date Recorded By Document 10/13/23 13:00 [email or web address] [email or web address] 10/13/23 13:52 DJO Document 10/13/23 13:05 [email or web address] [email or web address] 10/13/23 13:52 DJO Document 10/13/23 13:10 [email or web address] [email or web address] 10/13/23 13:52 DJO Document 10/13/23 13:15 [email or web address] [email or web address] 10/13/23 13:52 DJO Document 10/13/23 13:20 [email or web address] [email or web address] 10/13/23 13:52 DJO Document 10/13/23 13:40 [email or web address] [email or web address] 10/13/23 13:52 DJO 10/13/23 10/13/23 10/13/23 13:00 13:05 13:10 Home O2 Evaluation [Oxygen] -Test Phase Resting Exercise Exercise -Oxygen Delivery Room Air Room Air Nasal Cannula -Oxygen Flow Rate (L/min) 1 [Pulse Oximetry] -Pulse Oximetry (90-100 %) 91 85 L 86 L [Pulse Rate] -Pulse Rate (60-100 beats/min) 68 80 82 [Evaluation] -Activity Tolerance [Charges] -Evaluation Charges O2 Evaluation by Pulmonary 10/13/23 10/13/23 10/13/23 13:15 13:20 13:40 Home O2 Evaluation [Oxygen] -Test Phase Exercise Exercise Resting -Oxygen Delivery Nasal Cannula Nasal Cannula Room Air -Oxygen Flow Rate (L/min) 2 3 [Pulse Oximetry] -Pulse Oximetry (90-100 %) 88 L 90 91 [Pulse Rate] -Pulse Rate (60-100 beats/min) 79 85 68 [Evaluation] -Activity Tolerance Good [Charges] -Evaluation Charges
--- NOTE | 2023-10-13 14:06 | PCRCNOTE ---
HOME O2 EVAL COMPLETE, PT NEEDS 3L WITH ACTIVITY. SET UP WITH [facility]. PHONE NUMBER [phone]. [facility] TO DELIVER TANK FOR DISCHARGE
--- NOTE | 2023-10-13 17:27 | PM.DS ---
DS: Admitting Diagnosis Discharge Date 10/13/23 Admitting Diagnosis Pulmonary embolism Pneumonia Elevated troponin Hypertension Renal failure DS: Discharge Diagnosis Discharge Diagnosis (1) Pulmonary embolism: Code(s): I26.99 - Other pulmonary embolism without acute cor pulmonale Status: Acute (2) Pneumonia: Qualifiers: Laterality: bilateral Lung location: unspecified part of lung Pneumonia type: due to unspecified organism Qualified Code(s): J18.9 - Pneumonia, unspecified organism Code(s): J18.9 - Pneumonia, unspecified organism Status: Acute (3) Elevated troponin: Code(s): R79.89 - Other specified abnormal findings of blood chemistry Status: Acute (4) Hypertension: Code(s): I10 - Essential (primary) hypertension Status: Acute (5) Renal failure: Code(s): N19 - Unspecified kidney failure Status: Acute DS: Summary Hospital Course Hospital Course: This is an 83 year old female who presented to the hospital on 10/09/23 with complaints of [id number] , cough, congestion, poor appetite, nausea, loose stools and shortness of breath. Work up in the hospital included a chest x-ray which shown pneumonia, VQ scan which revealed a PE, venous doppler study which was negative for DVT. Labs revealed WBC 17.5, D-dimer 2.90, Na+ 133, BUN 38, Creatinine 1.70, eGFR 29. Troponin 0.082<0.103>0.086. UA shown 3+ protein, trace ketones. respiratory panel was negative for COVID, flu, and RSV. Urine strep and urine legionella was negative. Mycoplasma was insignificant. She had an echo done which shown normal LV systolic function with an EF of 65-70%, grade 1 diastolic dysfunction. EKG shown NSR with a rate of 81, prolongation of QTc. Patient was started on Azithromycin and Rocephin. She was also started on Eliquis for the PE. On examination today patient is alert and oriented x3, sitting in the chair. Family is at the bedside.Labs today reveal WBC 7.3, RBC 3.90, Hgb 11.1, Hct 36.1, Chloride 108, BUN 28, Creatinine 1.30, liver enzymes are normal, blood sugars ranging 91-101. She was transitioned to oral Augmentin and oral Azithromycin today. She is currently on 1L NC and requiring oxygen with activity. She is stable for discharge after home O2 evaluation. She will need to continue Eliquis for 1 month and then see PCP back for a re-evaluation of her PE. Final diagnosis: Pulmonary embolism, community acquired pneumonia Status at Discharge Cognitive/behavioral status at discharge: Alert and oriented x3 Functional status at discharge: independent ambulation Overall status at discharge: patient is progressing back to baseline Time Spent with Patient Time attestation: Total time spent providing and/or coordinating discharge services: Time spent: Greater than 30 minutes Exam Narrative: General: In no acute distress, well nourished Head: atraumatic, no encephalopathy Eyes: EOMI, PERRLA, sclera clear ENT: moist mucous membranes, nasal passages clear Neck: supple, no JVD, no adenopathy, trachea midline Cardiac: Normal S1 and S2. Murmur noted. No gallops or friction rubs, peripheral pulses intact. Respiratory: Lungs clear to auscultation, no adventitious lung sounds Gastrointestinal: soft, non-distended, non-tender, normoactive bowel sounds. : voiding without difficulty. Extremities: moves all extremities well, no edema, good ROM, strength 5/5 Skin: clean, dry, intact. No wounds or lesions. Neuro: Alert and oriented x4, cranial nerves intact, no neuro deficits. Psych: normal mood, normal affect, interactive DS: Data Data Completed and Pending Completed studies during hospitalization: Chest x-ray Pulmonary perfusion imaging Venous Doppler study Pending studies at discharge: None Labs on day of discharge: Labs from last 24 hours 10/13/23 10/09/23 10:42 22:13 WBC 6.7 RBC 3.90 L Hgb 11.1 L Hct 35.9 L MCV 92.1 MCH 28.5 MCHC 30.9 L RDW 13.9 Plt Cou
--- NOTE | 2023-10-17 14:19 | IVDEFINITY ---
Prior to administration of IV Definity the patient was educated on the risks and benefits of the imaging enhancing agent including potential adverse side effects. The patient verbalized understanding. Allergies were verified. No exclusion criteria were identified and at least one of the following inclusion criteria were met: 1) physician request, 2) patient technically difficult to image (per the [place] [employer] guidelines of two or more segments not discernable within the apical view), or 3) questionable left ventricular function. ?
== END 2023-10-13 17:15 | disposition home or self-care (01) ==
LOC: ANHED 12:21 → ANHIMU 13:39 → ANH3MEDSUR 10-11 08:34 → ANHIMU 10-17 07:40
PROVIDERS: Emergency Medicine; Internal Medicine; Nurse Practitioner Acute Care; Physician Assistant; Admitting Provider Internal Medicine; Emergency Provider Physician Assistant; Visit Provider Student in an Organized Health Care Education/Training Program
DX: I26.99 Other pulmonary embolism without acute cor pulmonale (principal); J18.9 Pneumonia, unspecified organism; R79.89 Other specified abnormal findings of blood chemistry; I11.0 Hypertensive heart disease with heart failure; N19 Unspecified kidney failure; I50.9 Heart failure, unspecified; I08.3 Combined rheumatic disorders of mitral, aortic and tricuspid valves; E78.5 Hyperlipidemia, unspecified; R19.7 Diarrhea, unspecified; R94.31 Abnormal electrocardiogram [ECG] [EKG]; Z20.822 Contact with and (suspected) exposure to COVID-19; Z90.49 Acquired absence of other specified parts of digestive tract; Z95.0 Presence of cardiac pacemaker; Z95.2 Presence of prosthetic heart valve; I70.0 Atherosclerosis of aorta; R63.0 Anorexia; Z68.34 Body mass index [BMI] 34.0-34.9, adult; Z85.3 Personal history of malignant neoplasm of breast; Z90.11 Acquired absence of right breast and nipple; R79.1 Abnormal coagulation profile; Z79.82 Long term (current) use of aspirin; Z79.899 Other long term (current) drug therapy
CPT/HCPCS: 36415; 36600; 71045; 78582; 80048; 80053; 81001; 82805; 83735; 83880; 84484; 85025; 85027; 85055; 85380; 86738; 87070; 87205; 87449; 87637; 87899; 93005; 93970; 94618; 96361; 96365; 96366; 96367; 96372; 96375; 99285; A9270; A9540; A9558; C8929; G0378; J0456; J0696; J1650; J7030; Q9957

== ENCOUNTER 2024-03-09 13:46 | Emergency (ER) | payer MEDICARE, SELFPAY ==
[2024-03-09] VITALS (7 sets, daily range): BP systolic 148–184; BP diastolic 76–86; PULSE 66–67; RESP 18–24; O2SAT 83–100
--- NOTE | ~2024-03-09 | XR_ITS ---
Clinical Indication: Shortness of breath AP and lateral views of the chest: Comparison: 10/09/2023 Findings: There is central congestive change and mild pulmonary edema pattern. Possible minimal pleur al effusions. Cardiomediastinal silhouette is stable, status post aortic valve replacement with pace maker. Bones and soft tissues are unremarkable. Impression: Central congestive change with mild pulmonary edema and probable minimal pleural effusions. Pacemaker device. Reviewed, dictated and finalized at location M. Impression: Central congestive change with mild pulmonary edema and probable minimal pleura l effusions. Pacemaker device.
--- NOTE | 2024-03-09 13:58 | ECG_ITS ---
SEE SCANNED COPY FOR CONFIRMED REPORT MTDD
[2024-03-09 14:08] LABS: Basophils Absolute Auto 0.1 K/mm3 (0.0-0.1); Basophils Percent Auto 0.9 % (0.2-1.2); Eosinophils Absolute Auto 0.3 K/mm3 (0-0.3); Eosinophils Percent Auto 5.2 % (0-4.4); Hematocrit 40.7 % (37.0-47.0); Hemoglobin 12.6 g/dL (12.0-15.0); Immature Granulocyte Absolute 0.02 K/mm3 (0.00-0.031); Immature Granulocyte Percent A 0.3 % (0-0.5); Lymphocytes Absolute Auto 1.41 K/mm3 (0.9-3.2); Lymphocytes Percent Auto 22.3 % (18.3-44.2); Mean Corpuscular Hemoglobin 26.6 pg (26-34); Mean Corpuscular Volume 85.9 fl (80-100); Mean Platelet Volume 10.9 fl (7.4-10.4); Monocytes Absolute Auto 0.6 K/mm3 (0.1-0.6); Monocytes Percent Auto 9.8 % (2.6-8.5); Neutrophils Absolute Auto 3.9 K/mm3 (1.3-6.7); Neutrophils Percent Auto 61.5 % (45.5-73.1); Platelet Count Result 154 k/mm3 (150-375); Red Blood Count 4.74 M/mm3 (4.2-5.4); Red Cell Distribution Width 14.9 % (11.5-14.5); White Blood Count 6.3 K/mm3 (4.5-10.0)
[2024-03-09 14:18] LABS: Alanine Aminotransferase 13 U/L (6-35); Alkaline Phosphatase 100 U/L (38-126); Anion Gap 4 mmol/L (4-12); Aspartate Amino Transferase 28 U/L (14-36); Bilirubin,Total 0.6 mg/dL (0.2-1.3); Blood Urea Nitrogen 30 mg/dL (7-17); Carbon Dioxide 27 mmol/L (22-30); Chloride 107 mmol/L (98-107); Estimated Glomerular Filt Rate 43; Glucose 104 mg/dL (65-110); Potassium 4.6 mmol/L (3.4-5.0); Sodium 138 mmol/L (137-145)
[2024-03-09 14:55] LABS: NT Pro B Type Natriuretic Pept 9540 pg/mL (19.9-100)
--- NOTE | 2024-03-09 15:08 | ED.GENADULT ---
HPI - General Adult General Chief complaint: Shortness of Breath/Dyspnea Stated complaint: SOB Time Seen by Provider: 03/09/24 14:15 History of Present Illness HPI narrative: Patient is a 47-year-old who presents to the emergency department this afternoon complaining of shortness of breath. Patient does wear home oxygen, 2 L daily and states that there has been some construction around the [place] which has caused a lot of dust and believes that that has precipitated his symptoms. Denies any history of CHF. Patient is also denying any chest, any nausea or vomiting, any abdominal. She is resting comfortably in the bed not appear to be in any acute distress. Denies any fevers or chills at home, admits to a mild cough, otherwise denies any additional symptoms or concerns. Related Data Home Medications Medication Instructions Recorded Confirmed aspirin 81 mg tablet 81 mg PO DAILY 10/09/23 10/09/23 furosemide 20 mg tablet 20 mg PO DAILY 10/09/23 10/09/23 losartan 100 mg tablet 100 mg PO DAILY 10/09/23 10/09/23 metoprolol succinate 25 mg 50 mg PO DAILY 10/09/23 10/09/23 tablet,extended release 24 hr potassium chloride 10 mEq 10 meq PO DAILY 10/09/23 10/09/23 tablet,extended release Allergies Allergy/AdvReac Type Severity Reaction Status Date / Time atorvastatin [From Lipitor] AdvReac Itching Verified 10/09/23 09:07 Review of Systems Review of Systems: All systems are reviewed and are negative unless stated otherwise in the HPI. [facility] Past Medical History Medical History Cancer of right breast Hyperlipidemia Hypertension Surgical History Surgical History History of aortic valve replacement It sounds like she had a TAVR. History of cholecystectomy History of permanent cardiac pacemaker placement History of right mastectomy Family History Family History Other Heart disease Hypertension Social History Social History Social History: Surrogate medical decision maker: Nati Garcia. Code status: Full code. Smoking status: Never smoker Substance use type: does not use Do You Feel Safe in your Home?: Yes Lack of Transportation: No Lack of Food: Never True Current Housing: I Have Housing Concerned About Future Housing: No Difficulty Paying Gas/Electric Bills: No Difficulty Paying for Meds: No Currently Unemployed: No Education: Trade/Vocational Certificate Difficulty w/ Childcare or Family Care: No Spiritual care concerns: No Exam Narrative: General: Alert, awake, afebrile, in no acute distress. HEENT: PERRL, no rhinorrhea, no post nasal drip, oropharynx clear. Cardiovascular: Regular rate and rhythm, no murmurs, rubs or gallops, no peripheral edema. Respiratory: Clear to auscultation bilaterally, no tachypnea, no wheezing, no rhonchi, no rubs, no respiratory distress. Abdomen: Soft, nontender, nondistended, no rebound, no guarding, no peritoneal signs. Musculoskeletal: No joint swelling or deformity, normal muscle tone. Skin: No rashes or petechia, no signs of infection. Neurological: Alert and oriented to person, place, and time. Follows all commands. No focal deficits, speech is clear and fluent. Course Vital Signs Vital signs: Vital Signs Pulse Rate 67 03/09/24 13:49 Respiratory Rate 19 03/09/24 13:49 Blood Pressure 184/76 H 03/09/24 13:49 Pulse Oximetry 83 L 03/09/24 13:49 Oxygen Delivery Room Air 03/09/24 13:49 Pulse Rate 66 03/09/24 15:04 Respiratory Rate 23 H 03/09/24 15:04 Blood Pressure 148/86 H 03/09/24 15:04 Pulse Oximetry 98 03/09/24 15:04 Oxygen Delivery Nasal Cannula 03/09/24 14:25 Oxygen Flow Rate 2 03/09/24 14:25 Medical Decision Making MDM Narrative Medical decision making narra
== END 2024-03-09 15:40 | disposition home or self-care (01) ==
PROVIDERS: Emergency Provider Emergency Medicine
DX: R06.02 Shortness of breath (principal); E78.5 Hyperlipidemia, unspecified; I10 Essential (primary) hypertension; Z99.81 Dependence on supplemental oxygen; Z85.3 Personal history of malignant neoplasm of breast; Z95.0 Presence of cardiac pacemaker; Z95.2 Presence of prosthetic heart valve; Z90.49 Acquired absence of other specified parts of digestive tract; Z90.11 Acquired absence of right breast and nipple; Z79.01 Long term (current) use of anticoagulants; Z79.82 Long term (current) use of aspirin; Z79.899 Other long term (current) drug therapy
CPT/HCPCS: 36415; 71046; 80053; 83880; 85025; 93005; 99284

== ENCOUNTER 2024-06-01 00:43 | Inpatient (IN) | payer MEDICARE, SELFPAY ==
[2024-06-01] VITALS (57 sets, daily range): BP systolic 127–175; BP diastolic 35–105; PULSE 62–92; RESP 17–33; TEMP 36.4–36.6; O2SAT 84–100; BMI 30.1
--- NOTE | 2024-06-01 | ECHO_ITS ---
Patient Info Name: Emily Rm Age: 84 years : 1940 Gender: Female Ht: 60 in Wt: 160 lbs BSA: 1.78 m2 HR: 85 bpm BP: 139 / 93 mmHg Heart Rhythm: Sinus Rhythm, Paced Technical Quality: Good Exam Date: 06/01/2024 8:38 AM Exam Location: Echo Lab Patient Status: Inpatient Admit Date: 06/01/2024 Staff Ordering Physician: Elaine Hoang DO Cocoa Butter Filter Operator: Maria Antonia Perera RDCS Attending Provider: Elaine Hoang DO Referring Physician: Natalya BURNETTE; Exam Type: CA echo dop color flow w con Study Info Indications - pul edema Complete two-dimensional, color flow and Doppler transthoracic echocardiogram is performed with contrast to opacify the left ventricle and to improve the deliniation of the left ventricle endocardial borders. Summary 1. Technically somewhat challenging exam, definity contrast utilized to improve imaging. 2. Severe concentric left ventricular hypertrophy with vigorous systolic function and grade 2 diastolic noncompliance. 3. Left atrial enlargement. 4. Calcified mitral valve annulus with trivial MR. 5. TAVR valve reasonably well visualized with well maintained leaflet excursion and mild perivalvular AI, valve is not stenotic. 6. Mild tricuspid and pulmonic regurgitation. 7. Pacemaker leads noted. Left Ventricle Left ventricular chamber dimension is normal. Left ventricular systolic function is normal, estimated at 60-65%. There is severe concentric increased left ventricular wall thickness. The left ventricular diastolic function is grade II diastolic dysfunction. Right Ventricle Right ventricular chamber dimension is normal. Linear artifact in right ventricle suggestive of catheter(s), pacemaker lead(s), or ICD lead(s). Left Atria Left atrial chamber dimension is mildly enlarged. Right Atria Right atrial chamber dimension is mildly enlarged. Linear artifact in the right atrium suggestive of catheter(s), pacemaker lead(s), or ICD lead(s). Aortic Valve There is mild regurgitation of the TAVR aortic valve. Pulmonic Valve The pulmonic valve is not well visualized. Mitral Valve The mitral valve has thickened leaflets. There is trace mitral valve regurgitation. The mitral valve annulus is severely calcified. Tricuspid Valve The tricuspid valve leaflets are normal. There is mild tricuspid valve regurgitation. Moderate pulmonary hypertension, estimated pulmonary arterial systolic pressure is 66 mmHg. Pericardium/Pleural The pericardium appears normal. Aorta The aortic root size at the sinus of Valsalva is normal. Left Ventricular Outflow Tract Name Value Normal LVOT 2D LVOT Diameter 1.79 cm LVOT Doppler LVOT Peak Gradient 3 mmHg LVOT Mean Gradient 2 mmHg LVOT VTI 24.61 cm LVOT VTI/AV VTI Ratio 0.27 LVOT Stroke Volume 61.84 ml LVOT CO 3.93 l/min LVOT CI 2.31 L/min/m2 Pulmonic Valve Name Value Normal
--- NOTE | ~2024-06-01 | XR_ITS ---
EXAMINATION: XR chest 1V portable DATE: 06/01/2024 02:00 INDICATION: Shortness of breath TECHNIQUE: frontal view of the chest was obtained. COMPARISON: Chest radiograph dated 03/09/2024 FINDINGS: Cardiomegaly with perihilar and lower lung predominant interstitial and airspace opacities and favor congestive heart failure related mild pulmonary edema over pneumonia. More dense retrocardiac consoli dation the left lower lung zone with blunting at the costophrenic angle suggesting small left pleural effusion with associated atelectasis versus pneumonia. No pneumothorax or definitive for a pleural e ffusion. Dense mitral annular calcification. Dual lead pacemaker seen with leads projecting over the expected locations of the right atrium and right ventricle. Aortic valve repair. IMPRESSION: 1. Bilateral perihilar and basilar predominant opacities and favor congestive heart failure related m ild pulmonary edema over pneumonia. 2. Small left pleural effusion with associated left basilar atelectasis and/or pneumonia. 2. Cardiomegaly. Reviewed, dictated and finalized at location A. IMPRESSION: 1. Bilateral perihilar and basilar predominant opacities and favor congestive h eart failure related mild pulmonary edema over pneumonia. 2. Small left pleural effusion with associated left basilar atelectasis and/or pneumonia. 2. Cardiomegaly.
--- NOTE | 2024-06-01 00:51 | ECG_ITS ---
Test Date: 2024-06-01 00:57:45 Measurements Intervals [place] Rate: 74 P: 160 MD: 211 QRS: 244 QRSD: 202 T: 83 QT: 449 QTc: 499 Interpretive Statements ELECTRONIC VENTRICULARLY PACED RHYTHM ABNORMAL ECG No previous ECG available for comparison Electronically Signed On 06-01-2024 09:36:01 CDT by Mj Armendariz M.D.
[2024-06-01 01:10] LABS: Basophils Absolute Auto 0.1 K/mm3 (0.0-0.1); Basophils Percent Auto 1.2 % (0.2-1.2); Eosinophils Absolute Auto 0.1 K/mm3 (0-0.3); Eosinophils Percent Auto 0.9 % (0-4.4); Hematocrit 37.3 % (37.0-47.0); Hemoglobin 11.4 g/dL (12.0-15.0); Immature Granulocyte Absolute 0.02 K/mm3 (0.00-0.031); Immature Granulocyte Percent A 0.3 % (0-0.5); Lymphocytes Absolute Auto 1.48 K/mm3 (0.9-3.2); Lymphocytes Percent Auto 19.6 % (18.3-44.2); Mean Corpuscular HGB Conc 30.6 g/dl (32-36); Mean Corpuscular Hemoglobin 27.5 pg (26-34); Mean Corpuscular Volume 89.9 fl (80-100); Mean Platelet Volume 12.3 fl (7.4-10.4); Monocytes Absolute Auto 0.5 K/mm3 (0.1-0.6); Monocytes Percent Auto 6.5 % (2.6-8.5); Neutrophils Absolute Auto 5.4 K/mm3 (1.3-6.7); Neutrophils Percent Auto 71.5 % (45.5-73.1); Platelet Count Result 119 k/mm3 (150-375); Red Blood Count 4.15 M/mm3 (4.2-5.4); Red Cell Distribution Width 15.9 % (11.5-14.5); White Blood Count 7.5 K/mm3 (4.5-10.0)
--- NOTE | 2024-06-01 01:11 | PC.NURSE ---
RT in room placing patient on bipap.
[2024-06-01 01:20] LABS: Alanine Aminotransferase 13 U/L (6-35); Albumin Level 4.2 g/dL (3.5-5.1); Alkaline Phosphatase 111 U/L (38-126); Anion Gap 7 mmol/L (4-12); Aspartate Amino Transferase 32 U/L (14-36); Bilirubin,Total 0.7 mg/dL (0.2-1.3); Blood Urea Nitrogen 38 mg/dL (7-17); Calcium 8.8 mg/dL (8.4-10.2); Carbon Dioxide 35 mmol/L (22-30); Chloride 94 mmol/L (98-107); Estimated CRCL calculation 20 ml/min; Estimated Glomerular Filt Rate 29; Glucose 138 mg/dL (65-110); Potassium 5.2 mmol/L (3.4-5.0); Sodium 136 mmol/L (137-145)
--- NOTE | 2024-06-01 01:23 | ECG_ITS ---
Test Date: 2024-06-01 01:48:31 Measurements Intervals [place] Rate: 67 P: -1 GA: 218 QRS: -67 QRSD: 214 T: 101 QT: 498 QTc: 529 Interpretive Statements ELECTRONIC VENTRICULAR PACEMAKER ABNORMAL RHYTHM ECG Compared to ECG 06/01/2024 00:57:45 No significant changes Electronically Signed On 06-01-2024 09:38:15 CDT by Mj Armendariz M.D.
--- NOTE | 2024-06-01 01:23 | ED.SOB ---
HPI - SOB/Dyspnea General Chief Complaint: Shortness of Breath/Dyspnea Stated Complaint: sob since 1800 after seeing pulmonology Time Seen by Provider: 06/01/24 00:54 Source: patient and family (niece) Limitations: language barrier (Nepalese as second language but patient able to answer pertinent questions) and clinical condition (respiratory distress and hard of hearing) History of Present Illness HPI Narrative: Patient presents with shortness of breath. History of CHF. Saw her lead process engineer today, Dr Karyna Soto through [facility] where she received her pneumonia shot and tetanus up dated. Has been staying with her niece, Nati, who provides collateral information. Patient suddenly started having difficulty breathing. Normally on home O2 4L and niece thought perhaps the tank was out given her acute distress but the tank was ok. She was originally saturating 80% by report, NRB applied which improved saturation to 95%. Patient initially denies ever needing bipap before but then states perhaps it was used when she was hospitalized in [place], [place] in March for CHF, PNA, and a UTI (niece states this hospitalization with breathing issues was preceded by construction which released a lot of dust/debris). She had been discharged to a rehab facility at that time. She is supposed to have PFTs done in 2 weeks. Non smoker, no history of COPD. She is on anticoagulation as well as Norvasc. She initially states she takes Lasix , two 40mg tablets in the morning. Niece states this change was just recommended this morning (to take two 20mg tablets starting today). Patient's environmental protection economist is Dr Lico Middleton through [facility]). Related Data Home Medications Medication Instructions Recorded Confirmed potassium chloride 10 mEq 10 meq PO DAILY 10/09/23 06/01/24 tablet,extended release amlodipine 5 mg tablet 5 mg PO DAILY 06/01/24 06/01/24 apixaban 5 mg tablet (Eliquis) 5 mg PO Q12HR PE 06/01/24 06/01/24 furosemide 40 mg tablet 40 mg PO BID 06/01/24 06/01/24 nitroglycerin 0.4 mg sublingual 0.4 mg sublingual Q5MIN PRN Chest 06/01/24 06/01/24 tablet Pain Allergies Allergy/AdvReac Type Severity Reaction Status Date / Time shellfish derived Allergy Anaphylaxis Verified 06/01/24 06:21 atorvastatin [From Lipitor] AdvReac Itching Verified 06/01/24 06:21 [facility] Past Medical History Medical History (Updated 06/01/24 @ 07:22 by Elaine Hoang DO) Cancer of right breast CHF due to valvular disease Chronic anticoagulation Chronic respiratory failure with hypoxia and hypercapnia Hearing loss Bilateral hearing aids Hyperlipidemia Hypertension Obstructive sleep apnea Intolerant to CPAP Surgical History Surgical History (Updated 06/01/24 @ 06:55 by Elaine Hoang DO) History of aortic valve replacement (~2019) It sounds like she had a TAVR. History of cardiac catheterization No stents History of cholecystectomy History of permanent cardiac pacemaker placement History of right mastectomy (~1977) Status post cataract extraction of both eyes with insertion of intraocular lens Status post open reduction with internal fixation of fracture (~1959) Family History Family History Mother Diabetes mellitus Father Unknown family medical history Sibling Alzheimer disease Sibling Alzheimer disease Sibling Liver cirrhosis Hepatitis Sibling Liver cirrhosis Sibling Tuberculosis Sibling Breast cancer Heart disease Diabetes mellitus Hypertension Sibling Liver cancer Social History Social History (Updated 06/01/24 @ 07:45 by Elaine Hoang DO) Social History: Surrogate medical decision maker: Nati Brown (Dee) (niece) Code status: DNR/DNI per patient request Smoking status: Never smoker Second hand tobacco smoke exposure: No Alcohol intake: never Substance use: never Substance use ty
[2024-06-01 01:28] LABS: D Dimer 2.58 ug/mL (<0.48)
[2024-06-01 01:40] LABS: NT Pro B Type Natriuretic Pept 27500 pg/mL (19.9-100)
[2024-06-01 01:56] LABS: Influenza A QL RT-PCR Negative (Negative); Influenza B QL RT-PCR Negative (Negative); RSV RNA, RT-PCR Negative (Negative); SARS-CoV-2 RNA PCR Negative (Negative)
[2024-06-01 02:10] LABS: Magnesium 2.8 mg/dL (1.6-2.3)
[2024-06-01] MEDS: FUROSEMIDE INJ 40 MG/4 ML VIAL IV PUSH ×3 (02:38→17:38)
[2024-06-01 03:18] LABS: Alveolar/Arterial O2 Gradient 138.8 mmHg; Base Excess ABG 4.7 mEq/l (+/-2.0); Fractional Inspired Oxygen 40 %; HCO3 ABG 33.5 mEq/l (22.0-26.0); Oxygen Content ABG 14.6 %vol (16.0-22.0); Oxyhemoglobin 88.4 % THb (90.0-100.0); PO2 ABG 61.6 mmHg (80.0-100.0); PO2 FiO2 Ratio Arterial Blood 1.54 %; Total Hemoglobin 11.7 g/dL (12.0-18.0)
[2024-06-01 03:19] LABS: PCO2 ABG 73.7 mmHg (35.0-45.0); pH ABG 7.275 (7.350-7.450)
[2024-06-01 03:20] LABS: Device BIPAP; Modified Allen's Test Pass; Oxygen Saturation ABG 87.4 % (95.0-100.0); Site Drawn RIGHT RADIAL
[2024-06-01 03:21] LABS: Expiratory Pressure 7 cmH2O; Inspiratory Pressure 12 cmH2O
[2024-06-01] MEDS: NITROGLYCERIN SL 0.4 MG TABLET SUBLINGUAL (04:40)
--- NOTE | 2024-06-01 06:05 | ADMGEN ---
This patient, Emily Rm, was admitted to IMU Room 214-01 on 06/01/24 at 0515. Patient/family oriented to hospital policies and general routines including ID bracelet, bed and alarms, visiting hours, pain management, procedures, bathroom and other care routines, personal items, smoking policy, room service/diet, and visiting hours. Information on how to activate the Rapid Response Team has been discussed. Patient/Family are encouraged to report perceived risks to care and to ask questions if they do not understand what they are told or what they should do.
--- NOTE | 2024-06-01 06:19 | PM.IMHP ---
H&P: HPI History of Present Illness Date/Time: 06/01/24 06:19 Chief Complaint: Severe shortness of breath Narrative: 84-year-old female with a past medical history TAVR 2019, pacemaker, essential hypertension, chronic kidney disease stage III, obstructive sleep apnea intolerant to CPAP, pulmonary embolism September 2023, and breast cancer who presented to the ER from home via EMS due to acute on chronic shortness of breath. The patient and her niece her bedside help provide history. The patient is originally from [place], [place] and is currently staying with her niece due to her recent decline in health. The patient was admitted to our facility in September of 2023 at which time she was diagnosed with a pulmonary embolism. The niece reports the patient health seemed to be stable until in March when the patient was having her bathroom remodeled and she developed respiratory distress and ended up being hospitalized. She was discharged on 2 L nasal cannula and has been on continuous oxygen for the last month. She was told she needs a follow-up in have outpatient PFTs to rule out underlying lung disease. However since March the patient has been having increasing lower extremity swelling that fluctuates. She also reports chronic orthopnea and has sleep in a recliner with a wedge to keep herself completely upright. She has not noticed increasing orthopnea but it seems that there may be some paroxysmal nocturnal dyspnea. Her swelling has been worse over the last week and she now has some abdominal swelling as well. They have not noticed any significant cough or congestion. The patient solid geriatric physician yesterday who ordered her Lasix 20 mg 2 tablets daily for the patient. Patient denies having any chest pain but did report that her chest it felt tight for the last several hours prior to presentation. The patient is post follow-up with her rivet heater in [place] this week. The patient had been prescribed Lasix 40 mg b.i.d. after discharge from her recent hospital stay. The patient and the niece are unclear whether not the patient is post be taking 20 mg of Lasix twice daily or 40 mg twice daily The patient feels that she still has a urinary tract infection that she was diagnosed with over 6 months ago. Sounds like this is based on urinary frequency and urgency. She has had been having any fevers or chills. Over the last month she has become so short of breath with exertion that she had to get a Rollator so that she can sit down every few feet and rest. The patient has been having poor appetite for several months. However the last several days she has been having nausea but no vomiting. She denies any abdominal pain. Her last bowel movement was yesterday and was normally formed. Although the patient is alert oriented x4 she is only a fair to poor historian at best. Her niece help provide some limited history. Some information was obtained from limited prior records and ER physician report. Review of Systems Review of Systems: 12 systems were reviewed with pertinent positives and negatives per HPI. Except as documented in the HPI, all other systems were reviewed and are negative. 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 History of cardiac catheterization No stents History of cholecystectomy History of permanent cardiac pacemaker placement History of right mastectomy (~1977) Status post cataract extraction of both eyes with insertion of intraocular lens Status post open reduction w
[2024-06-01 06:42] LABS: Fractional Inspired Oxygen 50 %; HCO3 VBG 32.9 mEq/l (24.0-30.0); PO2 VBG 33.1 mmHg (35.0-45.0); pH VBG 7.318 (7.300-7.400)
[2024-06-01 06:44] LABS: Device NON-INVASIVE VENT; Non-Invasive Expiratory Pressure 8 CMH2O; Non-Invasive Inspiratory Pressure 16 CMH2O; Non-Invasive Vent Rate 22 /MIN; PCO2 VBG 65.6 mmHg (42.0-48.0)
[2024-06-01 06:46] LABS: Anion Gap 4 mmol/L (4-12); Blood Urea Nitrogen 42 mg/dL (7-17); Calcium 8.5 mg/dL (8.4-10.2); Carbon Dioxide 38 mmol/L (22-30); Chloride 94 mmol/L (98-107); Estimated CRCL calculation 20 ml/min; Estimated Glomerular Filt Rate 31; Glucose 108 mg/dL (65-110); Potassium 5.3 mmol/L (3.4-5.0); Sodium 136 mmol/L (137-145)
[2024-06-01 07:12] LABS: Troponin I 0.028 ng/mL (0.000-0.034)
[2024-06-01] MEDS: IPRATROPIUM 0.5 MG/ALBUTEROL SULFATE 2.5 MG AMPUL.NEB 3 ML INHALATION ×3 (08:04→21:22)
[2024-06-01] MEDS: amLODIPine BESYLATE 5 MG TABLET PO (08:19)
[2024-06-01] MEDS: methylPREDNISolone SOD SUCC 40 MG VIAL IV PUSH ×3 (08:19→22:37)
[2024-06-01] MEDS: APIXABAN 5 MG TABLET PO ×2 (08:19→20:26)
[2024-06-01] MEDS: SODIUM ZIRCONIUM CYCLOSILICATE 10 GM POWD.PACK PO (08:20)
[2024-06-01] MEDS: PERFLUTREN LIPID MICROSPHERES 1.5 ML VIAL DILUTED TO 10 ML TOTAL VOLUME IV PUSH (08:40)
[2024-06-01] MEDS: NITROGLYCERIN OINTMENT 1 INCH DOSE TRANSDERM (09:24)
--- NOTE | 2024-06-01 09:51 | PC.NURSE ---
Reviewed plan of care with family at bedside and patient. Educated patient and family about the need for BiPaP and subsequent test to be performed prior to removal of device.
--- NOTE | 2024-06-01 10:43 | IVDEFINITY ---
Prior to administration of IV Definity the patient was educated on the risks and benefits of the imaging enhancing agent including potential adverse side effects. The patient verbalized understanding. Allergies were verified. No exclusion criteria were identified and at least one of the following inclusion criteria were met: 1) physician request, 2) patient technically difficult to image (per the [place] [employer] Echocardi[employer] guidelines of two or more segments not discernable within the apical view), or 3) questionable left ventricular function. ?
[2024-06-01 10:49] LABS: Add Urine Microscopic? YES; Appearance Urine Clear (Clear); Bacteria Urine None Seen /hpf; Bilirubin Urine Negative (Negative); Blood Urine Negative (Negative); Color Urine Yellow (Yellow); Glucose Urine UA Negative (Negative); Ketones Urine Negative (Negative); Leukocyte Esterase Ur Negative LEU/UL (Negative); Nitrate Urine Negative (Negative); Protein Urine 2+ mg/dL (Negative); RBC Urine 0-2 /hpf (0-2); Specific Grav Ur 1.008 (1.001-1.035); Squamous Epithelial Cell Urine None Seen /hpf (Few); Urobilinogen Urine 0.2 mg/dL (<2.0); WBC Urine 0-5 /hpf (0-3)
--- NOTE | 2024-06-01 11:51 | PM.CNCAR ---
Assessment and Plan Assessment and plan (1) CHF due to valvular disease: Code(s): I50.9 - Heart failure, unspecified; I38 - Endocarditis, valve unspecified Status: Acute (2) Acute on chronic respiratory failure with hypoxia and hypercapnia: Code(s): J96.21 - Acute and chronic respiratory failure with hypoxia; J96.22 - Acute and chronic respiratory failure with hypercapnia Status: Acute Plan This is an 84-year-old lady with a rather complicated history she has aortic valve disease treated with a TAVR prosthesis 4 years ago and presumably had AV node embarrassment following the TAVR because she required a pacemaker implantation at the same time. According to her secretarial stenographer's notes her device is functioning normally and they were not concerned about prosthetic TAVR malfunction. It would be rather unusual for her TAVR valve to be severely stenotic S it is only 4 years old however the echocardiogram Doppler data from this hospital's lab in September of 2023 indicated high ejection velocity at least consistent with significant stenosis. Her medical regimen appropriately consists of a low dose of beta-iliana and losartan at a higher dose which I will resume today. It is fine with me to diurese her with intravenous furosemide at this time I am going to add Jardiance to her regimen because of the frequency of these admissions with shortness of breath. Given this patient's advanced age and desire for DNR status she is not a candidate for further procedures regarding her aortic valve I would therefore not plan on further investigating the function of her prior aortic valve prosthesis with CHARLENE or anything else at this time. If she is planning to follow-up with us for ongoing cardiac care we will also need records regarding the identity of her pacemaker so we can arrange for appropriate follow-up of this device. At the moment it is functioning appropriately. History of Present Illness History of Present Illness Consult date/time: 06/01/24 11:51 Reason For Visit: CHF exacerbation Narrative: This is an 84-year-old woman with a complex extensive history who I do not know prior to this encounter. I am seeing her because of shortness of breath and concern regarding appropriate functioning of her aortic valve prosthesis. The patient has a history of aortic valve disease being treated by physicians in the [facility] system for the last for 5 years. I do not have all the records pertaining to this but what I have been able to glean from the electronic record is that she had severe aortic stenosis and underwent a TAVR aortic valve replacement followed by a pacemaker implant back in 2019. She has been followed by her secretarial stenographer on an ongoing basis since then and initially has been doing well. She has however had a series of hospitalizations since the winter of 2022 will 1 of which was here and several which were [place] with elsewhere at other facilities. She came here in September of 2023 with shortness of breath and was found to have a pulmonary embolism and apixaban was added to her medical regimen. She then has had at least 3 or 4 other hospitalizations elsewhere with dyspnea with evidence of what was felt to be diastolic heart failure and was treated with diuretics. She is in the process of moving from her home in [facility] to this area to live with a niece in [place]. She saw a new primary care physician at [facility] yesterday and during that appointment was reporting increasing shortness of breath. That physician advised her to double the dose of her furosemide from 20-40 mg for 5 days but obviously later the same day in the evening she came to this hospital with shortness of breath and was admitted. She was felt to have some pulmonary edema on exam and chest x-ray and was given intravenous furosemide she also has significant hypercarbic respiratory failure was placed on a BiPAP noninvasive ventilator. We were also asked to see
[2024-06-01] MEDS: LOSARTAN POTASSIUM 100 MG TABLET PO (12:43)
[2024-06-01] MEDS: METOPROLOL SUCCINATE EXT REL 25 MG TABCR PO (12:44)
[2024-06-01] MEDS: EMPAGLIFLOZIN 10 MG TABLET PO (12:44)
[2024-06-01 12:46] LABS: Alveolar/Arterial O2 Gradient 217.6 mmHg; Base Excess ABG 5.4 mEq/l (+/-2.0); Carboxyhemoglobin 0.4 % THb (0-2.0); Fractional Inspired Oxygen 50 %; HCO3 ABG 32.9 mEq/l (22.0-26.0); Methemoglobin ABG 0.2 %THb (0-1.5); Oxygen Content ABG 15.3 %vol (16.0-22.0); Oxygen Saturation ABG 91.4 % (95.0-100.0); PO2 FiO2 Ratio Arterial Blood 1.34 %; Reduced Hemoglobin 7.4 %THb (0-5.0); Total Hemoglobin 11.8 g/dL (12.0-18.0)
[2024-06-01 12:48] LABS: Device NON-INVASIVE VENT; PCO2 ABG 63.9 mmHg (35.0-45.0); Site Drawn LEFT BRACHIAL
[2024-06-01 12:49] LABS: Non-Invasive Expiratory Pressure 8 CMH2O; Non-Invasive Inspiratory Pressure 16 CMH2O; Non-Invasive Vent Rate 22 /MIN
[2024-06-01 18:42] LABS: Alveolar/Arterial O2 Gradient 203.2 mmHg; Carboxyhemoglobin 0.4 % THb (0-2.0); Fractional Inspired Oxygen 50 %; HCO3 ABG 32.5 mEq/l (22.0-26.0); Methemoglobin ABG 0.1 %THb (0-1.5); Oxygen Content ABG 15.5 %vol (16.0-22.0); Oxyhemoglobin 95.3 % THb (90.0-100.0); PO2 ABG 82.1 mmHg (80.0-100.0); PO2 FiO2 Ratio Arterial Blood 1.64 %; Reduced Hemoglobin 4.2 %THb (0-5.0); Total Hemoglobin 11.5 g/dL (12.0-18.0); pH ABG 7.328 (7.350-7.450)
[2024-06-01 18:46] LABS: PCO2 ABG 63.3 mmHg (35.0-45.0); Site Drawn RIGHT RADIAL
[2024-06-01 18:47] LABS: Device BIPAP; Expiratory Pressure 8 cmH2O; Inspiratory Pressure 16 cmH2O; Modified Allen's Test Pass
[2024-06-02] VITALS (32 sets, daily range): BP systolic 101–145; BP diastolic 29–83; PULSE 65–83; RESP 20–26; TEMP 35.8–36.6; O2SAT 93–100
[2024-06-02] MEDS: IPRATROPIUM 0.5 MG/ALBUTEROL SULFATE 2.5 MG AMPUL.NEB 3 ML INHALATION ×4 (02:38→19:36)
[2024-06-02 04:14] LABS: Hematocrit 32.8 % (37.0-47.0); Hemoglobin 9.9 g/dL (12.0-15.0); Mean Corpuscular HGB Conc 30.2 g/dl (32-36); Mean Corpuscular Hemoglobin 26.8 pg (26-34); Mean Corpuscular Volume 88.9 fl (80-100); Mean Platelet Volume 11.8 fl (7.4-10.4); Platelet Count Result 115 k/mm3 (150-375); Red Blood Count 3.69 M/mm3 (4.2-5.4); Red Cell Distribution Width 15.7 % (11.5-14.5); White Blood Count 6.5 K/mm3 (4.5-10.0)
[2024-06-02 04:27] LABS: Anion Gap 8 mmol/L (4-12); Blood Urea Nitrogen 48 mg/dL (7-17); Calcium 8.7 mg/dL (8.4-10.2); Carbon Dioxide 34 mmol/L (22-30); Chloride 92 mmol/L (98-107); Estimated CRCL calculation 18 ml/min; Estimated Glomerular Filt Rate 27; Glucose 137 mg/dL (65-110); Magnesium 2.6 mg/dL (1.6-2.3); Potassium 4.6 mmol/L (3.4-5.0); Sodium 134 mmol/L (137-145)
[2024-06-02 04:54] LABS: Alveolar/Arterial O2 Gradient 184.2 mmHg; Base Excess ABG 5.5 mEq/l (+/-2.0); Carboxyhemoglobin 0.3 % THb (0-2.0); Fractional Inspired Oxygen 50 %; HCO3 ABG 32.1 mEq/l (22.0-26.0); Methemoglobin ABG 0.1 %THb (0-1.5); Oxygen Content ABG 14.7 %vol (16.0-22.0); Oxygen Saturation ABG 97.7 % (95.0-100.0); Oxyhemoglobin 97.7 % THb (90.0-100.0); PCO2 ABG 57.4 mmHg (35.0-45.0); PO2 ABG 107.7 mmHg (80.0-100.0); PO2 FiO2 Ratio Arterial Blood 2.15 %; Reduced Hemoglobin 1.9 %THb (0-5.0); Total Hemoglobin 10.6 g/dL (12.0-18.0); pH ABG 7.365 (7.350-7.450)
[2024-06-02 04:55] LABS: Device BIPAP; Modified Allen's Test Pass; Site Drawn RIGHT RADIAL
[2024-06-02 04:56] LABS: Expiratory Pressure 8 cmH2O; Inspiratory Pressure 16 cmH2O
[2024-06-02] MEDS: methylPREDNISolone SOD SUCC 40 MG VIAL IV PUSH ×3 (05:56→22:56)
--- NOTE | 2024-06-02 08:01 | PM.IMPN ---
Progress Note: A&P Assessment and Plan (1) Chronic anticoagulation: Code(s): Z79.01 - petroleum terminal plant operator (current) use of anticoagulants Status: Acute (2) Acute on chronic respiratory failure with hypoxia and hypercapnia: Code(s): J96.21 - Acute and chronic respiratory failure with hypoxia; J96.22 - Acute and chronic respiratory failure with hypercapnia Status: Acute (3) CHF due to valvular disease: Code(s): I50.9 - Heart failure, unspecified; I38 - Endocarditis, valve unspecified Status: Acute (4) Aortic valve stenosis with insufficiency: Qualifiers: Cardiac valve disease etiology: nonrheumatic Qualified Code(s): I35.2 - Nonrheumatic aortic (valve) stenosis with insufficiency Code(s): I35.2 - Nonrheumatic aortic (valve) stenosis with insufficiency Status: Acute (5) Acute kidney injury superimposed on stage 3b chronic kidney disease: Code(s): N17.9 - Acute kidney failure, unspecified; N18.32 - Chronic kidney disease, stage 3b Status: Acute Plan H&P via Elaine Hoang DO 84-year-old female with a past medical history TAVR 2019, pacemaker, essential hypertension, chronic kidney disease stage III, obstructive sleep apnea intolerant to CPAP, pulmonary embolism September 2023, and breast cancer who presented to the ER from home via EMS due to acute on chronic shortness of breath. The patient and her niece her bedside help provide history. The patient is originally from [place], [place] and is currently staying with her niece due to her recent decline in health. The patient was admitted to our facility in September of 2023 at which time she was diagnosed with a pulmonary embolism. The niece reports the patient health seemed to be stable until in March when the patient was having her bathroom remodeled and she developed respiratory distress and ended up being hospitalized. She was discharged on 2 L nasal cannula and has been on continuous oxygen for the last month. She was told she needs a follow-up in have outpatient PFTs to rule out underlying lung disease. However since March the patient has been having increasing lower extremity swelling that fluctuates. She also reports chronic orthopnea and has sleep in a recliner with a wedge to keep herself completely upright. She has not noticed increasing orthopnea but it seems that there may be some paroxysmal nocturnal dyspnea. Her swelling has been worse over the last week and she now has some abdominal swelling as well. They have not noticed any significant cough or congestion. The patient solid geriatric physician yesterday who ordered her Lasix 20 mg 2 tablets daily for the patient. Patient denies having any chest pain but did report that her chest it felt tight for the last several hours prior to presentation. The patient is post follow-up with her barrel tester and drainer in [place] this week. The patient had been prescribed Lasix 40 mg b.i.d. after discharge from her recent hospital stay. The patient and the niece are unclear whether not the patient is post be taking 20 mg of Lasix twice daily or 40 mg twice daily The patient feels that she still has a urinary tract infection that she was diagnosed with over 6 months ago. Sounds like this is based on urinary frequency and urgency. She has had been having any fevers or chills. Over the last month she has become so short of breath with exertion that she had to get a Rollator so that she can sit down every few feet and rest. The patient has been having poor appetite for several months. However the last several days she has been having nausea but no vomiting. She denies any abdominal pain. Her last bowel movement was yesterday and was normally formed. Although the patient is alert oriented x4 she is only a fair to poor historian at best. Her niece help provide some limited history. Some information was obtained from limited prior records and ER physician report. --- The patient presents with acute on ch
[2024-06-02] MEDS: LOSARTAN POTASSIUM 100 MG TABLET PO (08:52)
[2024-06-02] MEDS: amLODIPine BESYLATE 5 MG TABLET PO (08:52)
[2024-06-02] MEDS: EMPAGLIFLOZIN 10 MG TABLET PO (08:52)
[2024-06-02] MEDS: FUROSEMIDE 40 MG TABLET PO ×2 (08:52→17:22)
[2024-06-02] MEDS: METOPROLOL SUCCINATE EXT REL 25 MG TABCR PO (08:52)
[2024-06-02] MEDS: APIXABAN 5 MG TABLET PO ×2 (08:52→20:26)
--- NOTE | 2024-06-02 09:48 | PM.PNCARD ---
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 She also has atrial fibrillation. She has multiple admissions with shortness of breath elsewhere over the last year and pulmonary embolism in September of 2023. Echocardiogram done yesterday I reviewed very carefully and I do not believe she has prosthetic stenosis of her TAVR valve. Despite the Doppler findings from September of 2023 the TAVR valve leaflets can be seen and exhibit good leaflet excursion. The perivalvular AI is very mild. She has LVH with good systolic function. Obviously diastolic noncompliance is an issue. She is doing better with intravenous furosemide. I did add Jardiance to the regimen. I was not aware until this morning that her physicians elsewhere had prescribed home oxygen for her. If she does require home O2 I stressed to her that it is extremely important that she not leave the house and run out of her oxygen which she is doing when she needs to run errands. Mj Armendariz MD [facility] Subjective Date/time seen: Date of service 06/02/24 09:48 Interval history: Follow-up visit in this 84-year-old lady with: Multiple admissions to hospitals with shortness of breath over the course of this year. She has aortic valve disease and previous TAVR valve 4 years ago complicated by complete heart block requiring pacemaker implant. She feels better this morning is wearing nasal cannula oxygen and speaking comfortably. Patient tells me that she is supposed to have 2 L of nasal cannula oxygen continuously at home. When she goes out and runs errands her portable concentrator apparently runs out of oxygen and there are times when she therefore is not receiving her treatment. Exam Const: General: comfortable and no acute distress Other: Obese elderly lady no distress HENMT: Mouth: Yes moist mucous membranes Eyes: Sclera: sclerae normal Neck: Neck: supple Resp: Effort & Inspection: normal respiratory effort Other: Patient has a few basilar crackles remaining no wheezing Cardio: Rate: regular rate Rhythm: regular rhythm Other: Paced rhythm, grade 2/6 crescendo decrescendo murmur audible best at the base GI: GI Palp: Yes Soft to palpation Auscultation: normal bowel sounds Skin: General skin exam: normal color Neuro: Other: Oriented x3, normal cognition Objective Data Vital Signs Vital Signs: Vital Signs - 24 hr 06/01/24 10:00 06/01/24 11:24 06/01/24 12:35 Temperature 36.6 C Pulse Rate 64 66 66 Respiratory Rate 25 H 24 H Blood Pressure 141/35 H Pulse Oximetry 97 96 Oxygen Delivery BiPAP Oxygen Flow Rate Fraction of Inspired Oxygen 06/01/24 12:43 06/01/24 12:59 06/01/24 12:44 Temperature Pulse Rate 66 68 Respiratory Rate 24 H Blood Pressure Pulse Oximetry 94 Oxygen Delivery Nasal Cannula Oxygen Flow Rate 3 Fraction of Inspired Oxygen 06/01/24 12:53 06/01/24 13:08 06/01/24 13:09 Temperature Pulse Rate 71 Respiratory Rate 24 H Blood Pressure Pulse Oximetry 84 L 91 Oxygen Delivery Nasal Cannula Nasal Cannula Oxygen Flow Rate 3 5 Fraction of Inspired Oxygen 06/01/24 12:00 06/01/24 12:00 06/01/24 14:00 Temperature Pulse Rate 65 77 Respiratory Rate Blood Pressure Pulse Oximetry 98 Oxygen Delivery BiPAP Oxygen Flow Rate Fraction of Inspired Oxygen 50 06/01/24 15:46 06/01/24 16:00 06/01/24 17:33 Temperature 36.6 C Pulse Rate 64 69 Respiratory Rate 20 29 H Blood Pressure 127/43 L Pulse Oxi
[2024-06-03] VITALS (23 sets, daily range): BP systolic 127–148; BP diastolic 38–44; PULSE 60–87; RESP 20–28; TEMP 36.3–36.6; O2SAT 93–100; BMI 30.4
[2024-06-03] MEDS: IPRATROPIUM 0.5 MG/ALBUTEROL SULFATE 2.5 MG AMPUL.NEB 3 ML INHALATION ×3 (01:07→13:50)
[2024-06-03 04:38] LABS: Hematocrit 29.3 % (37.0-47.0); Immature Platelet Fraction Pct 10.1 % (0.9-11.2); Mean Corpuscular HGB Conc 30.7 g/dl (32-36); Mean Corpuscular Hemoglobin 27.4 pg (26-34); Mean Corpuscular Volume 89.1 fl (80-100); Mean Platelet Volume 12.4 fl (7.4-10.4); Platelet Count Result 106 k/mm3 (150-375); Red Blood Count 3.29 M/mm3 (4.2-5.4); White Blood Count 9.2 K/mm3 (4.5-10.0)
[2024-06-03 04:56] LABS: Anion Gap 7 mmol/L (4-12); Blood Urea Nitrogen 57 mg/dL (7-17); Calcium 8.6 mg/dL (8.4-10.2); Carbon Dioxide 33 mmol/L (22-30); Chloride 94 mmol/L (98-107); Estimated CRCL calculation 17 ml/min; Estimated Glomerular Filt Rate 25; Glucose 137 mg/dL (65-110); Magnesium 2.6 mg/dL (1.6-2.3); Potassium 4.5 mmol/L (3.4-5.0); Sodium 134 mmol/L (137-145)
[2024-06-03] MEDS: methylPREDNISolone SOD SUCC 40 MG VIAL IV PUSH ×2 (06:07→15:19)
[2024-06-03] MEDS: LOSARTAN POTASSIUM 100 MG TABLET PO (08:19)
[2024-06-03] MEDS: amLODIPine BESYLATE 5 MG TABLET PO (08:20)
[2024-06-03] MEDS: APIXABAN 5 MG TABLET PO (08:20)
[2024-06-03] MEDS: EMPAGLIFLOZIN 10 MG TABLET PO (08:20)
[2024-06-03] MEDS: METOPROLOL SUCCINATE EXT REL 25 MG TABCR PO (08:20)
[2024-06-03] MEDS: FUROSEMIDE 40 MG TABLET PO (08:21)
--- NOTE | 2024-06-03 09:17 | PM.PNCARD ---
Progress Note: A&P Assessment and Plan (1) CHF due to valvular disease: Code(s): I50.9 - Heart failure, unspecified; I38 - Endocarditis, valve unspecified Status: Acute Plan 84-year-old lady with valvular heart disease status post TAVR in 2019 complicated by heart block requiring pacemaker implant. She reports that she is back to baseline she has had numerous hospitalizations this year with shortness of breath. She has diastolic dysfunction her TAVR valve is functioning well according to my interpretation of her echo during this hospitalization. She indicates that her pacemaker is a [employer] device we will arrange for transfer of her remote follow-up from her previous position to our office for that reason. I will plan to see her in the office in follow-up in 1 month and will set that up with my office. Mj Armendariz MD [facility] Subjective Date/time seen: Date of service: 06/03/24 09:17 Interval history: Follow-up visit in this 84-year-old lady with: Multiple admissions to hospitals with shortness of breath over the course of this year. She has aortic valve disease and previous TAVR valve 4 years ago complicated by complete heart block requiring pacemaker implant. She feels better this morning is wearing nasal cannula oxygen and speaking comfortably. Patient tells me that she is supposed to have 2 L of nasal cannula oxygen continuously at home. When she goes out and runs errands her portable concentrator apparently runs out of oxygen and there are times when she therefore is not receiving her treatment. Date of service 06/03/2024: The patient feels well she is asymptomatic and hopeful of being discharged. She is moving from [facility] to [place] and will be requesting follow-up in our practice which I told her we would be happy to arrange. She feels her breathing as well, no active complaints this morning Exam Const: General: comfortable and no acute distress Other: Obese elderly lady no distress HENMT: Mouth: Yes moist mucous membranes Eyes: Sclera: sclerae normal Neck: Neck: supple Resp: Effort & Inspection: normal respiratory effort Auscultation: clear to auscultation bilaterally Other: Patient has a few basilar crackles remaining no wheezing Cardio: Rate: regular rate Rhythm: regular rhythm Other: Paced rhythm, grade 2/6 crescendo decrescendo murmur audible best at the base GI: Auscultation: normal bowel sounds Skin: General skin exam: normal color Neuro: Other: Oriented x3, normal cognition Extrem: Other: Currently no edema Objective Data Vital Signs Vital Signs: Vital Signs - 24 hr 06/02/24 10:00 06/02/24 11:27 06/02/24 12:00 Temperature 36.2 C L Pulse Rate 66 71 78 Respiratory Rate 20 Blood Pressure 101/83 Pulse Oximetry 99 Oxygen Delivery Oxygen Flow Rate Fraction of Inspired Oxygen 06/02/24 12:00 06/02/24 13:40 06/02/24 13:49 Temperature Pulse Rate 83 80 Respiratory Rate 20 20 Blood Pressure Pulse Oximetry 96 Oxygen Delivery Nasal Cannula Oxygen Flow Rate 5 Fraction of Inspired Oxygen 06/02/24 14:00 06/02/24 15:35 06/02/24 16:00 Temperature 36.3 C L Pulse Rate 73 81 76 Respiratory Rate 20 Blood Pressure 145/33 H Pulse Oximetry 97 Oxygen Delivery Oxygen Flow Rate Fraction of Inspired Oxygen 06/02/24 18:00 06/02/24 16:00 06/02/24 19:59 Temperature 36.6 C Pulse Rate 79 78 Respiratory Rate 20 Blood Pressure 124/40 L Pulse Oximetry 97 93 Oxygen Delivery Nasal Cannula Oxygen Flow Rate 5 Fraction of Inspired Oxygen 06/02/24 19:36 06/02/24 20:04 06/02/24 19:45 Temperature Pulse Rate 76 80 Respiratory Rate 20 20 Blood Pressure Pulse Oximetry 96 Oxygen Delivery Nasal Cannula Oxygen Flow Rate 3 Fraction of Inspired Oxygen 06/02/24 20:00 06/02/24 20:00 06/02/24 22:30 Temperature Pulse Rate 78 76 71 Resp
--- NOTE | 2024-06-03 13:41 | PC.NURSE ---
Updated [facility], on discharge plans. [facility] unable to get to hospital until 5:30pm.Julia Schultz RN and Dr. Desai.
--- NOTE | 2024-06-03 14:26 | PM.DS ---
DS: Admitting Diagnosis Discharge Date June 03, 2024 Admitting Diagnosis Acute hypoxic and hypercapnic respiratory failure DS: Discharge Diagnosis Discharge Diagnosis (1) Chronic anticoagulation: Code(s): Z79.01 - USP (current) use of anticoagulants Status: Acute (2) Acute on chronic respiratory failure with hypoxia and hypercapnia: Code(s): J96.21 - Acute and chronic respiratory failure with hypoxia; J96.22 - Acute and chronic respiratory failure with hypercapnia Status: Acute (3) CHF due to valvular disease: Code(s): I50.9 - Heart failure, unspecified; I38 - Endocarditis, valve unspecified Status: Acute (4) Acute kidney injury superimposed on stage 3b chronic kidney disease: Code(s): N17.9 - Acute kidney failure, unspecified; N18.32 - Chronic kidney disease, stage 3b Status: Acute DS: Summary Hospital Course Hospital Course: H&P via Elaine Hoang DO 84-year-old female with a past medical history TAVR 2019, pacemaker, essential hypertension, chronic kidney disease stage III, obstructive sleep apnea intolerant to CPAP, pulmonary embolism September 2023, and breast cancer who presented to the ER from home via EMS due to acute on chronic shortness of breath. The patient and her niece her bedside help provide history. The patient is originally from [place], [place] and is currently staying with her niece due to her recent decline in health. The patient was admitted to our facility in September of 2023 at which time she was diagnosed with a pulmonary embolism. The niece reports the patient health seemed to be stable until in March when the patient was having her bathroom remodeled and she developed respiratory distress and ended up being hospitalized. She was discharged on 2 L nasal cannula and has been on continuous oxygen for the last month. She was told she needs a follow-up in have outpatient PFTs to rule out underlying lung disease. However since March the patient has been having increasing lower extremity swelling that fluctuates. She also reports chronic orthopnea and has sleep in a recliner with a wedge to keep herself completely upright. She has not noticed increasing orthopnea but it seems that there may be some paroxysmal nocturnal dyspnea. Her swelling has been worse over the last week and she now has some abdominal swelling as well. They have not noticed any significant cough or congestion. The patient solid geriatric physician yesterday who ordered her Lasix 20 mg 2 tablets daily for the patient. Patient denies having any chest pain but did report that her chest it felt tight for the last several hours prior to presentation. The patient is post follow-up with her test center administrator in [place] this week. The patient had been prescribed Lasix 40 mg b.i.d. after discharge from her recent hospital stay. The patient and the niece are unclear whether not the patient is post be taking 20 mg of Lasix twice daily or 40 mg twice daily The patient feels that she still has a urinary tract infection that she was diagnosed with over 6 months ago. Sounds like this is based on urinary frequency and urgency. She has had been having any fevers or chills. Over the last month she has become so short of breath with exertion that she had to get a Rollator so that she can sit down every few feet and rest. The patient has been having poor appetite for several months. However the last several days she has been having nausea but no vomiting. She denies any abdominal pain. Her last bowel movement was yesterday and was normally formed. Although the patient is alert oriented x4 she is only a fair to poor historian at best. Her niece help provide some limited history. Some information was obtained from limited prior records and ER physician report. --- The patient presents with acute on chronic hypoxic hypercarbic respiratory failure. And patient does have evidence of pulmonary edema and likely has CHF due to air
== END 2024-06-03 17:25 | disposition home health service (06) | DRG 189 ==
LOC: ANHED 04:15 → ANHIMU 04:53
PROVIDERS: Admitting Provider Internal Medicine; Emergency Provider Student in an Organized Health Care Education/Training Program; Visit Provider General Practice
DX: J96.21 Acute and chronic respiratory failure with hypoxia (principal); I13.0 Hypertensive heart and chronic kidney disease with heart failure and stage 1 through stage 4 chronic kidney disease, or unspecified chronic kidney disease; I50.1 Left ventricular failure, unspecified; N17.9 Acute kidney failure, unspecified; J96.22 Acute and chronic respiratory failure with hypercapnia; D69.6 Thrombocytopenia, unspecified; E78.5 Hyperlipidemia, unspecified; G47.33 Obstructive sleep apnea (adult) (pediatric); H91.90 Unspecified hearing loss, unspecified ear; I35.8 Other nonrheumatic aortic valve disorders; I48.91 Unspecified atrial fibrillation; N18.32 Chronic kidney disease, stage 3b; Z95.2 Presence of prosthetic heart valve; Z95.0 Presence of cardiac pacemaker; Z91.199 Patient's noncompliance with other medical treatment and regimen due to unspecified reason; Z86.711 Personal history of pulmonary embolism; Z85.3 Personal history of malignant neoplasm of breast; Z79.01 Long term (current) use of anticoagulants; Z66 Do not resuscitate; Z90.49 Acquired absence of other specified parts of digestive tract; Z98.41 Cataract extraction status, right eye; Z98.42 Cataract extraction status, left eye; Z96.1 Presence of intraocular lens
CPT/HCPCS: 36415; 36600; 71045; 80048; 80053; 81001; 82375; 82803; 82805; 83050; 83735; 83880; 84484; 85025; 85027; 85055; 85380; 87637; 93005; 94002; 94003; 94640; 96374; 97161; 97165; 99285; A9270; C8929; J1940; J2919; Q9957